=== PATIENT | female | born 1930 | race Caucasian/White ===

== ENCOUNTER 2016-11-18 09:57 | Emergency (ER) | payer MEDICARE, OTHER ==
[2016-11-18 11:19] LABS: #Lymphocytes 0.7 thou/uL (1.20-3.40); #Monocytes 0.6 thou/uL (0.11-0.59); #Neutrophils 7.5 thou/uL (1.40-6.50); %Basophils 0.1 % (0.0-1.0); %Eosinophils 0.4 % (0.0-10.0); %Lymphocytes 8.3 % (21.0-51.0); %Monocytes 6.7 % (0.0-10.0); Hematocrit 38.5 % (36.0-47.0); Mean Platelet Volume 7.4 fL (7.4-10.4); Red Blood Cell (RBC) Count 3.77 mill/uL (4.20-5.40); White Blood Cell (WBC) Count 8.9 thou/uL (4.8-10.8)
[2016-11-18 11:45] LABS: Troponin I 0.028 ng/mL (< 0.028)
[2016-11-18 11:58] LABS: ALT (SGPT) 29 U/L (8-55); AST (SGOT) 30 U/L (5-34); Alkaline Phosphatase 90 U/L (40-150); Anion Gap 16 mmol/L (10-20); BUN (Urea Nitrogen) 21 mg/dL (9.8-20.1); Bilirubin, Total 0.8 mg/dL (0.2-1.2); CK (CPK) 117 U/L (29-168); Calc. Creatinine Clearance 0 mL/min (70-130); Carbon Dioxide 24 mmol/L (23-31); Chloride 108 mmol/L (98-107); Estimated GFR-MDRD 50; Globulin 2.2 g/dL (2.4-3.5); Protein, Total 6.2 g/dL (6.0-8.3)
[2016-11-18 12:04] LABS: Bilirubin Negative (Negative); Blood, Urine Negative (Negative); Glucose, Urine (Dipstick) Negative (Negative); Ketone, Urine Negative (Negative); Nitrite Negative (Negative); Protein, Urine (Dipstick) 100 mg/dL (Neg-Trace); Urobilinogen 0.2 mg/dL (0.2-1.0)
[2016-11-18 12:09] LABS: Bacteria/HPF None Seen HPF (None Seen); Hyaline Casts/LPF 4-6 HYALINE CAST LPF (0-3 Hyaline); Squamous Epithelial 0-3 HPF (0-3); WBC/HPF 0-3 HPF (0-3)
--- NOTE | 2016-11-18 13:05 | RAD ---
SINGLE VIEW OF CHEST: Date: 11/18/16 COMPARISON: 10/20/15. HISTORY: Syncope and fall. FINDINGS: Single view of the chest shows a normal sized cardiomediastinal silhouette. There is no evidence of consolidation, mass, or pleural effusion. The bones are unremarkable. Surgical clips are seen over t he left chest wall. IMPRESSION: No evidence of acute cardiopulmonary disease. POS: [facility]
--- NOTE | 2016-11-18 13:57 | CT ---
HEAD CT WITHOUT CONTRAST: Date: 11/18/16 COMPARISON: 03/25/16. HISTORY: Fall, trauma, injury. TECHNIQUE: Serial axial CT imaging obtained at 5 mm intervals from vertex through skull base without contrast. FINDINGS: Imaged paranasal sinuses/mastoid air cells well aerated. No displaced calvarial fracture. There is cerebral volume loss with prominence of the CSF containing spaces, a stable finding. There is extensive periventricular deep and subcortical white matter hypodensity, evidence of significant stable small vessel disease. IMPRESSION: Small vessel disease and cerebral volume loss with no intracranial hemorrhage or displaced calvarial fracture. POS: [facility]
== END 2016-11-18 14:00 | disposition home or self-care (01) ==
LOC: ERS 09:57
DX: Z04.3 Encounter for examination and observation following other accident (principal); F03.90 Unspecified dementia, unspecified severity, without behavioral disturbance, psychotic disturbance, mood disturbance, and anxiety; I10 Essential (primary) hypertension; J45.909 Unspecified asthma, uncomplicated; E78.5 Hyperlipidemia, unspecified; F32.9 Major depressive disorder, single episode, unspecified; Z87.891 Personal history of nicotine dependence; Z79.899 Other long term (current) drug therapy
CPT/HCPCS: 36415; 70450; 71010; 80053; 81003; 81015; 82550; 82553; 84484; 85025; 87086; 93005

== ENCOUNTER 2016-11-18 15:49 | Observation (INO) | payer MEDICARE, OTHER ==
[2016-11-18] MEDS ORDERED: Ondansetron HCl/PF 4 MG/2 ML Vial IVP PRN ×2 (18:16→20:04)
[2016-11-18] MEDS ORDERED: Calcium Carbonate 500 MG ChewTAB PO PRN (18:16)
[2016-11-18 19:39] LABS: Troponin I 0.061 ng/mL (< 0.028)
[2016-11-18] MEDS ORDERED: Acetaminophen 325 MG TAB PO PRN (20:04)
[2016-11-18] MEDS ORDERED: Ondansetron ODT 4 MG TAB SL PRN (20:04)
[2016-11-18] MEDS: Docusate 100 MG CAP PO SCH (22:10)
[2016-11-18] MEDS: Donepezil HCl 10 MG TAB PO SCH (22:10)
[2016-11-18] MEDS: Metoprolol Tartrate 25 MG TAB PO SCH (22:11)
[2016-11-18] MEDS: busPIRone HCl 5 MG TAB PO SCH (22:29)
[2016-11-18 23:46] VITALS: BMI 22.3
[2016-11-19 01:16] LABS: Troponin I 0.062 ng/mL (< 0.028)
[2016-11-19] MEDS: Acetaminophen 325 MG TAB PO PRN (01:17)
[2016-11-19 05:37] LABS: #Eosinphils 0.1 thou/uL (0.0-0.7); #Lymphocytes 1.9 thou/uL (1.20-3.40); #Monocytes 0.7 thou/uL (0.11-0.59); #Neutrophils 5.1 thou/uL (1.40-6.50); %Eosinophils 1.7 % (0.0-10.0); %Lymphocytes 23.8 % (21.0-51.0); %Monocytes 9.2 % (0.0-10.0); Hematocrit 35.2 % (36.0-47.0); Mean Platelet Volume 7.2 fL (7.4-10.4); Red Blood Cell (RBC) Count 3.44 mill/uL (4.20-5.40); White Blood Cell (WBC) Count 7.8 thou/uL (4.8-10.8)
[2016-11-19 05:51] LABS: Anion Gap 8 mmol/L (10-20); BUN (Urea Nitrogen) 16 mg/dL (9.8-20.1); Calc. Creatinine Clearance 36 mL/min (70-130); Calcium 9.5 mg/dL (7.8-10.44); Carbon Dioxide 24 mmol/L (23-31); Chloride 108 mmol/L (98-107); Estimated GFR-MDRD 59
--- NOTE | 2016-11-19 06:39 | HP ---
PRIMARY CARE PHYSICIAN: Angelic Morris M.D. CODE STATUS: DNR. REASON FOR ADMISSION: Weakness. HISTORY OF PRESENT ILLNESS: This is an 86-year-old pleasant lady who was apparently in usual state of health, was brought by the EMS today in the morning for apparently weakness. The patient is lorena ntepifanio and most of the history is obtained from the daughter. The patient was evaluated in the [facility], because the daughter had found her sitting up in the chair and not knowing what to do, she probab ly thought that it was one of her episodes for the dementia and told her to get up and sit up in the bed, but when she came back and checked, she was sitting still on the floor, not knowing what to do . She helped her up. The daughter herself has multiple medical problems and cannot take care of he rself. She tried her best to help her up, but she could not and hence she called the paramedics who brought her out here in the emergency room. CT scan of the head was done at that time was negative . The patient's UA was negative. Chest x-ray was negative as well and the blood work did not revea l any signs of infection. The patient was sent back home. The patient's daughter had further told me that once the patient was sent back home, the patient was able to walk back into the house, but a fter that, she became extremely weak and did not follow her commands, did not follow what the daught er tried to communicate with her as she could not pull her upper pants or her under pants, etc. The patient's daughter was still concerned and sent her back to the emergency room for further episodes of weakness. The daughter knows that in dementia she does do this on a frequent basis, but she usu ally resolves to her daughter yelling at her or being more forceful, but this time, all her little t echniques did not work and hence she was sent back to the hospital. She is going to be admitted for this weakness and possibly worsening of dementia. The patient answers simple questions appropriate ly, but is not reliable in her answers and right now, she denies any fever, chills, shortness of shandra ath. PAST MEDICAL HISTORY: Significant for dementia, history of hypertension, arthritis. PAST SURGICAL HISTORY: Left hip surgery. ALLERGIES: No known drug allergies. SOCIAL HISTORY: Quit smoking long time back, does not drink or do recreational drugs. FAMILY HISTORY: Negative. MEDICATIONS: Include Aricept, Amantadine, amlodipine, aspirin, Haldol, buspirone and another antide pressant. The patient is pretty much active for her day to day activities as per the daughter. REVIEW OF SYSTEMS: Significant for dementia is present as of now, but is supposed to has a history of getting aggressive and agitated. Right now, no fever, no chills, no headache, no appetite, no he aring loss, no latencies. No cough, no chest pain, diarrhea, dysuria, or polyuria. No neck pain. Patient keeps on asking why she is out here in the hospital. PHYSICAL EXAMINATION: VITAL SIGNS: Blood pressure is 145/92, respirations 18, afebrile, satting 95% on 2 liters. GENERAL: Patient is lying in bed in no apparent distress. HEENT: Atraumatic and normocephalic. Pupils equally round, react to light. Extraocular movements intact. Mucous membranes moist. NECK: Supple. No JVD. CHEST: Breath sounds heard. No rales or rhonchi. HEART: S1, S2, no murmurs or gallops. ABDOMEN: Soft, nontender. EXTREMITIES: No cyanosis, clubbing or edema. Distal pulses present. NEUROLOGIC: Alert, awake, oriented. No focal deficits. LABORATORY DATA AND IMAGING: Potassium is 3.7, creatinine is 1.05. CT head is negative. Chest x-r ay is negative. UA is clean. ASSESSMENT AND PLAN: 1. Weakness with altered mental state, possibly secondary to worsening dementia. We will get Neuro logy consult on board. We will get PT, OT evaluation, get case management help for placement. We w ill also check the patient for orthostatics. MRI if okay with Neurology. 2. Dementia. We will continue her home medication, Aricept and Amantadine. 3. Episodes of aggression and anxiety, because of worsening dementia. We will continue the Haldol and the buspirone. 4. Hypertension. We will put the patient on metoprolol 25 mg p.o. b.i.d. and monitor the blood pre ssure. 5. Sequential compression devices for deep venous thrombosis prophylaxis. The patient is DNR. Daughter has power of patent prosecution attorney, daughter's name is Maxine, her number is . We will put the patient on telemetry for now. We will monitor the patient and do the nee d for once the clinical course evolves.
[2016-11-19] MEDS ORDERED: Potassium Chloride 20 MEQ TAB PO SCH (08:30)
[2016-11-19] MEDS ORDERED: FLU VACC TS2017-18 (>65YR) 0.5 ML SYRINGE IM ONE (09:00)
[2016-11-19] MEDS: busPIRone HCl 5 MG TAB PO SCH ×2 (09:46→21:07)
[2016-11-19] MEDS: Aspirin 81 mg Enteric Coated Tablet PO SCH (09:46)
[2016-11-19] MEDS: Docusate 100 MG CAP PO SCH ×2 (09:46→21:08)
[2016-11-19] MEDS: Metoprolol Tartrate 25 MG TAB PO SCH (09:52)
[2016-11-19 10:26] LABS: Troponin I 0.035 ng/mL (< 0.028)
--- NOTE | 2016-11-19 10:56 | PDOC.PN ---
- Subjective Encounter Start Date: 11/19/16 Encounter Start Time: 10:54 Patient seen and examined. No new complaints. No overnight events - Objective Resuscitation Status: Resuscitation Status DNR:Do Not Resuscitate MAR Reviewed: Yes Vital Signs & Weight: Vital Signs (12 hours) Temp Pulse Resp BP BP BP Pulse Ox 11/19/16 08:00 97.7 F 70 14 160/76 H 140/60 139/66 100 11/18/16 23:32 97.8 F 58 L 18 131/59 L 96 Weight Weight 114 lb 6.4 oz I&O: 11/18/16 11/19/16 11/20/16 06:59 06:59 06:59 Intake Total 80 Balance 80 Result Diagrams: 11/19/16 05:16 11/19/16 05:16 Phys Exam - Physical Examination Constitutional: NAD HEENT: PERRLA Neck: no JVD Respiratory: no wheezing Cardiovascular: no significant murmur Gastrointestinal: non-tender Musculoskeletal: pulses present Neurological: moves all 4 limbs Deviation from normal: answers simple questions appropiately Skin: normal turgor Dx/Plan (1) Weakness Code(s): R53.1 - WEAKNESS Status: Acute (2) Hypokalemia Code(s): E87.6 - HYPOKALEMIA Status: Acute (3) Dementia Code(s): F03.90 - UNSPECIFIED DEMENTIA WITHOUT BEHAVIORAL DISTURBANCE Status: Acute (4) Hypertension Code(s): I10 - ESSENTIAL (PRIMARY) HYPERTENSION Status: Chronic Comment: Stable overall. Resume home BP meds and monitor trend. - Plan * f/u neuro rec's * cont pt/ot * case mx to help with placement
[2016-11-19 15:04] LABS: Troponin I 0.057 ng/mL (< 0.028)
[2016-11-19] MEDS: Donepezil HCl 10 MG TAB PO SCH (21:08)
--- NOTE | 2016-11-19 23:10 | CON ---
DATE OF CONSULTATION: 11/19/2016 REASON FOR CONSULTATION: Dementia. REFERRING PROVIDER: Yash Davis MD HISTORY OF PRESENT ILLNESS: Ms. Fonseca is a pleasant 86-year-old female, who has been c onsulted for evaluation of dementia. History is very limited as the patient is unable to provide an d there are no family member present at bedside, thus most of the [facility] as well as the nurse, who is taking care of the patient. Apparently, the patient has a longstanding history of dementia. The patient is being cared for by her daughter at home, wh o has noted increasing difficulty with taking care of her, and thus she was brought to the [facility] for possible placement. It is noted from the H and P note that the patient was found by the daughter to be sitting on the floor, not knowing what to do. She could not help her up to, and thus she decided to call the EMS. It is also noted that patient was initially brought to the [facility] Emergency Room, and after the CT scan and chest x-ray, and urinalysis were negative. She was s ent back home. After coming back from the emergency room, daughter noted that she was having extrem e difficulty with following her commands and did not communicate with daughter. She also could not pull her pants up or her underpants, etc., this concerned her and so she decided to bring the patien t back to the emergency room. PAST MEDICAL HISTORY, PAST SURGICAL HISTORY, SOCIAL HISTORY, FAMILY HISTORY, CURRENT MEDICATIONS, AN D ALLERGIES: Could not be obtained from patient and thus she was reviewed from patient's dictated H and P noted by Dr. Yash Daivs. REVIEW OF SYSTEMS: Unable to perform. PHYSICAL EXAMINATION: VITAL SIGNS: Blood pressure of 183/81, pulse of 65, temperature of 97.5, respirations of 16, O2 sat s of 96% on room air. GENERAL: Well-developed, well-nourished female resting in bed in no apparent distress. RESPIRATORY: Clear to auscultation bilaterally. CARDIOVASCULAR: Regular rate and rhythm. NEUROLOGIC: Mental status: The patient is awake and alert, but disoriented to person, place, and t melvin. She in fact made a comment that it is a morning when it is a nighttime, and thus she asked wha t happened to the daytime. Cranial nerves: Pupils are 3 mm and reactive. Visual samaniego are full t o threat. External muscles are intact. No nystagmus is noted. Face is symmetric. Motor exam show ed normal tone and bulk with a 5/5 strength in both upper and lower extremities. Babinski: Plantar responses flexion bilaterally. Coordination intact to [id number] tapping bilaterally. Sen boris: Sensation is intact and symmetric. LABORATORY DATA: Reviewed, which included CBC, BMP, urinalysis which are nonrevealing. CT head without contrast was done on 11/18/2016 which was reviewed, which showed no acute intracrani al abnormality. IMPRESSION: Advanced dementia. ASSESSMENT AND PLAN: Ms. Fonseca is a pleasant 86-year-old female who has a longstanding history of dementia, who presented with increasing difficulty with confusion and following commands at this time, there is no real cure for the underlying condition. Unfortunately, given her advance d dementia, the treatment is supportive care. Patient would benefit from a residential placement. There is no further neurological workup needed at this time, I do not think MRI would be useful at this point, in the sense, there is no focal weakness or sudden change in mentation is noted. This h as been chronic and based on the description of the nurse's discussion with family members. I will sign off. Please call if there are any questions or concerns.
[2016-11-20 08:50] LABS: Anion Gap 9 mmol/L (10-20); BUN (Urea Nitrogen) 24 mg/dL (9.8-20.1); Calc. Creatinine Clearance 33 mL/min (70-130); Calcium 9.3 mg/dL (7.8-10.44); Carbon Dioxide 23 mmol/L (23-31); Chloride 109 mmol/L (98-107); Estimated GFR-MDRD 48
[2016-11-20] MEDS: busPIRone HCl 5 MG TAB PO SCH ×2 (10:06→19:52)
[2016-11-20] MEDS: Aspirin 81 mg Enteric Coated Tablet PO SCH (10:06)
[2016-11-20] MEDS: Acetaminophen 325 MG TAB PO PRN ×2 (10:06→19:52)
[2016-11-20] MEDS: Docusate 100 MG CAP PO SCH ×2 (10:07→19:53)
[2016-11-20] MEDS ORDERED: Metoprolol Tartrate 25 MG TAB PO SCH (16:15)
--- NOTE | 2016-11-20 16:25 | PDOC.PN ---
- Subjective Encounter Start Date: 11/20/16 Encounter Start Time: 16:22 Patient seen and examined. No new complaints. No overnight events - Objective Resuscitation Status: Resuscitation Status DNR:Do Not Resuscitate MAR Reviewed: Yes Vital Signs & Weight: Vital Signs (12 hours) Temp Pulse Pulse Pulse Resp BP BP 11/20/16 11:43 98.3 F 78 18 11/20/16 10:06 67 11/20/16 10:00 66 166/78 H 11/20/16 09:16 64 63 182/84 H 172/76 H 11/20/16 07:33 98.2 F 67 16 BP Pulse Ox 11/20/16 11:43 156/84 H 94 L 11/20/16 10:06 11/20/16 10:00 11/20/16 09:16 11/20/16 07:33 147/68 H 95 Weight Weight 121 lb 11.2 oz I&O: 11/19/16 11/20/16 11/21/16 06:59 06:59 06:59 Intake Total 80 2040 Balance 80 2040 Result Diagrams: 11/19/16 05:16 11/20/16 08:11 Phys Exam - Physical Examination Constitutional: NAD HEENT: PERRLA Neck: no JVD Respiratory: no wheezing Cardiovascular: no significant murmur Gastrointestinal: non-tender Musculoskeletal: pulses present Neurological: normal sensation Dx/Plan (1) Weakness Code(s): R53.1 - WEAKNESS Status: Acute (2) Hypokalemia Code(s): E87.6 - HYPOKALEMIA Status: Acute (3) Dementia Code(s): F03.90 - UNSPECIFIED DEMENTIA WITHOUT BEHAVIORAL DISTURBANCE Status: Acute (4) Hypertension Code(s): I10 - ESSENTIAL (PRIMARY) HYPERTENSION Status: Chronic Comment: Stable overall. Resume home BP meds and monitor trend. - Plan * neuro input appreciated * case mx to help with placement * cont current mx
[2016-11-20] MEDS: Donepezil HCl 10 MG TAB PO SCH (19:52)
[2016-11-20] MEDS: Metoprolol Tartrate 25 MG TAB PO SCH (19:53)
[2016-11-21] MEDS: Acetaminophen 325 MG TAB PO PRN (01:19)
[2016-11-21] MEDS: Aspirin 81 mg Enteric Coated Tablet PO SCH (08:53)
[2016-11-21] MEDS: Docusate 100 MG CAP PO SCH (08:53)
[2016-11-21] MEDS: busPIRone HCl 5 MG TAB PO SCH (08:54)
[2016-11-21] MEDS: Metoprolol Tartrate 25 MG TAB PO SCH (09:00)
[2016-11-21 11:58] VITALS: TEMP 97.8
--- NOTE | 2016-11-21 12:58 | PDOC.PN ---
- Subjective Encounter Start Date: 11/21/16 Encounter Start Time: 12:57 Patient seen and examined. No new complaints. No overnight events - Objective Resuscitation Status: Resuscitation Status DNR:Do Not Resuscitate MAR Reviewed: Yes Vital Signs & Weight: Vital Signs (12 hours) Temp Pulse Resp BP BP BP Pulse Ox 11/21/16 11:54 97.8 F 62 14 117/57 L 96 11/21/16 08:55 54 L 111/54 L 11/21/16 08:01 97.4 F L 54 L 14 11/21/16 07:38 97.4 F L 54 L 14 111/54 L 97 11/21/16 04:04 97.8 F 62 18 145/77 H 97 11/21/16 01:15 67 140/77 Weight Weight 117 lb 11.2 oz I&O: 11/20/16 11/21/16 11/22/16 06:59 06:59 06:59 Intake Total 0 605 Output Total 1 Balance 0 604 Result Diagrams: 11/19/16 05:16 11/20/16 08:11 Phys Exam - Physical Examination Constitutional: NAD HEENT: PERRLA Neck: no JVD Respiratory: no wheezing Cardiovascular: no significant murmur Gastrointestinal: non-tender Musculoskeletal: pulses present Neurological: normal sensation, moves all 4 limbs Psychiatric: normal affect Skin: normal turgor Dx/Plan (1) Weakness Code(s): R53.1 - WEAKNESS Status: Acute (2) Hypokalemia Code(s): E87.6 - HYPOKALEMIA Status: Acute (3) Dementia Code(s): F03.90 - UNSPECIFIED DEMENTIA WITHOUT BEHAVIORAL DISTURBANCE Status: Acute (4) Hypertension Code(s): I10 - ESSENTIAL (PRIMARY) HYPERTENSION Status: Chronic Comment: Stable overall. Resume home BP meds and monitor trend. - Plan * cont current mx * case mx to help with placement
[2016-11-21 13:42] VITALS: BP 120/57
--- NOTE | 2016-11-22 00:09 | DIS ---
DATE OF ADMISSION: 11/18/2016 DATE OF DISCHARGE: 11/21/2016 DIAGNOSES ON DISCHARGE: 1. Weakness, improved. 2. Dementia causing episodes of altered mental state, improved. 3. Episodes of aggression and anxiety, stable. 4. Hypertension, stable. 5. Arthritis, stable. DISCHARGE MEDICATIONS: Include all home medications plus hydralazine 25 mg p.o. q.6 hours p.r.n. fo r systolic greater than 160. CONSULTANTS ON THE CASE: Neurology. BRIEF HOSPITAL COURSE: An 86-year-old pleasant lady came into the hospital because of episode of al tered mental state and weakness. Please refer to my admitting physician's H\T\P for further details . The patient's workup was negative. CT scan of the head was negative. Neurology evaluated the pa ronnie and determined that it was secondary to worsening of the dementia and no further workup was ne eded, and the patient needed to be placed safely. Case management helped us with that and right now the patient is placed in a long-term, which is right now medically stable to be discharged with outpatient follow up with PCP. Total time for this discharge took 35 minutes. She is medically stable to be transferred.
--- OUTSIDE RECORDS SUMMARY | 2016-11-26 20:48 | XMS | Clinical Summary ---
:1930 Author Organization [facility] Address [address] [place] [address] Phone Care Team Providers Name Role Phone , Primary Care Provider Unavailable Allergies Not on File Current Medications Not on file Active Problems Not on file Social History Tobacco Use Types Packs/Day Years Used Date Never Assessed Sex Assigned at Date Recorded Not on file Last Filed Vital Signs Not on file Plan of Treatment Not on file Results Not on filefrom Last 3 Months
== END 2016-11-21 18:14 ==
LOC: ERS 15:49 → 2SE 18:30
PROVIDERS: ADMIT Internal Medicine; ATTEND Internal Medicine
DX: R53.1 Weakness (principal); F03.90 Unspecified dementia, unspecified severity, without behavioral disturbance, psychotic disturbance, mood disturbance, and anxiety; F41.9 Anxiety disorder, unspecified; I10 Essential (primary) hypertension; M19.90 Unspecified osteoarthritis, unspecified site; E87.6 Hypokalemia; Z66 Do not resuscitate; Z79.82 Long term (current) use of aspirin; Z79.899 Other long term (current) drug therapy; Z98.890 Other specified postprocedural states; Z87.891 Personal history of nicotine dependence
CPT/HCPCS: 51701; 70450; 71010; 80048 ×2; 80053; 82550; 82553; 83735; 84484 ×4; 85025 ×2; 87086; 93005; 93306; 96360; 96372; 96374; 97110; 97116 ×2; 97139 ×5; 97530 ×3; 99285; G0378 ×2; G8978; G8979; G8987; G8988; 36415; 81003; 81015; 90471; 90682; A4353; G0008; J0360; Q2036

== ENCOUNTER 2017-01-18 07:51 | Emergency (ER) | payer MEDICARE ==
[2017-01-18 08:36] LABS: #Eosinphils 0.1 thou/uL (0.0-0.7); #Lymphocytes 2.3 thou/uL (1.20-3.40); #Monocytes 0.5 thou/uL (0.11-0.59); #Neutrophils 5.5 thou/uL (1.40-6.50); %Basophils 0.2 % (0.0-1.0); %Eosinophils 0.6 % (0.0-10.0); %Lymphocytes 27.4 % (21.0-51.0); %Monocytes 6.4 % (0.0-10.0); Hematocrit 37.3 % (36.0-47.0); Mean Platelet Volume 6.7 fL (7.4-10.4); Red Blood Cell (RBC) Count 3.77 mill/uL (4.20-5.40); White Blood Cell (WBC) Count 8.4 thou/uL (4.8-10.8)
[2017-01-18 08:48] LABS: ALT (SGPT) 19 U/L (8-55); AST (SGOT) 18 U/L (5-34); Alkaline Phosphatase 86 U/L (40-150); Anion Gap 13 mmol/L (10-20); BUN (Urea Nitrogen) 28 mg/dL (9.8-20.1); Bilirubin, Total 0.6 mg/dL (0.2-1.2); Calc. Creatinine Clearance 0 mL/min (70-130); Calcium 10.3 mg/dL (7.8-10.44); Carbon Dioxide 21 mmol/L (23-31); Chloride 108 mmol/L (98-107); Estimated GFR-MDRD 50; Globulin 2.6 g/dL (2.4-3.5); Protein, Total 6.4 g/dL (6.0-8.3)
--- NOTE | 2017-01-18 08:56 | RAD ---
SINGLE VIEW OF THE CHEST: Comparison: 11-18-16 History: Fall today with left hip pain. FINDINGS: Single view of the chest shows a normal sized cardiomediastinal silhouette. The patient is status pos t sternotomy. There is no evidence of consolidation, mass, or pleural effusions. Increased interstiti al markings are present. IMPRESSION: No evidence of acute cardiopulmonary disease. POS: [facility]
--- NOTE | 2017-01-18 08:57 | RAD ---
TWO VIEWS LEFT HIP: Comparison: None. History: Fall today with left hip pain. FINDINGS: Two views of the left hip shows the patient to be status post fixation of the proximal aspect of the left femur. No perihardware lucency or fracture is seen. There is no evidence of acute fracture or di slocation. IMPRESSION: No evidence of acute osseous abnormality. POS: [facility]
--- NOTE | 2017-01-18 09:00 | RAD ---
SINGLE VIEW PELVIS: Comparison: 09-10-15 History: Fall with left hip pain. FINDINGS: Single view of the pelvis shows no evidence of acute fracture or dislocation. The patient has a right hip prosthesis. There is hardware in the proximal left femur stabilizing previously seen intertrocha nteric left femur fracture. Degenerative changes are seen in the lumbar spine. IMPRESSION: No evidence of acute osseous abnormality. POS: [facility]
--- NOTE | 2017-01-18 09:19 | CT ---
CT LUMBAR SPINE: Multiple axial tomograms are obtained through the lumbar spine with multiplanar reconstruction. The patient was scanned on the right side due to inability to lay supine. HISTORY: Fall with back and hip pain. FINDINGS: The lumbar vertebrae maintain height and alignment in the sagittal projection. There is no evidence of acute compression deformity. There are moderate degenerative changes. There is osteopenia. At L1-2, broad-based disk bulge combined with hypertrophic changes results in mild to moderate centra l canal stenosis. At L2-3, disk bulge combined with posterior hypertrophic changes results in moderate central canal st enosis. At L3-4, diffuse disk bulge combined with facet hypertrophy results in moderate central canal stenosi s. At L4-5, there is a broad-based disk protrusion compressing the thecal sac. Prominent facet hypertro phy. Severe central canal stenosis at this level. Bilateral foraminal encroachment at this level du e to the diffuse disk bulge/protrusion. At L5-S1, focal disk protrusion with disk calcification impinges on the thecal sac. Mild to moderate central canal stenosis. Mild bilateral foraminal stenosis. IMPRESSION: 1. There is osteopenia and degenerative changes of the lumbar spine with degenerative disk changes a t all levels. There is severe central canal stenosis at L4-5 as described above and other degrees of central canal stenosis as noted above. 2. Incidentally noted on review of soft tissues shows left renal atrophy with cystic lesions project ing from the left kidney measuring up to 3.6 cm. POS: [facility]
[2017-01-18 09:44] LABS: Bilirubin Negative (Negative); Blood, Urine Negative (Negative); Glucose, Urine (Dipstick) Negative (Negative); Ketone, Urine Negative (Negative); Nitrite Positive (Negative); Protein, Urine (Dipstick) 30 mg/dL (Neg-Trace); Urobilinogen 0.2 mg/dL (0.2-1.0)
[2017-01-18 09:47] LABS: Bacteria/HPF 4+ HPF (None Seen); Hyaline Casts/LPF 0-3 HYALINE CAST LPF (0-3 Hyaline); RBC/HPF 0-3 HPF (0-3); Squamous Epithelial None Seen HPF (0-3); WBC/HPF 21-50 HPF (0-3)
== END 2017-01-18 10:38 | disposition home or self-care (01) ==
LOC: ERS 07:51
DX: N39.0 Urinary tract infection, site not specified (principal); M25.552 Pain in left hip; F03.90 Unspecified dementia, unspecified severity, without behavioral disturbance, psychotic disturbance, mood disturbance, and anxiety; I10 Essential (primary) hypertension; J45.909 Unspecified asthma, uncomplicated; E78.5 Hyperlipidemia, unspecified; Z85.3 Personal history of malignant neoplasm of breast; Z79.899 Other long term (current) drug therapy; Z87.891 Personal history of nicotine dependence; W13.4XXA Fall from, out of or through window, initial encounter
CPT/HCPCS: 36415; 51701; 71010; 72131; 72170; 80053; 81003; 81015; 85025; 87077; 87086; 87186; 93005; A4353

== ENCOUNTER 2017-01-31 09:53 | Emergency (ER) | payer MEDICARE ==
[2017-01-31 10:39] LABS: #Lymphocytes 1.3 thou/uL (1.20-3.40); #Monocytes 1.2 thou/uL (0.11-0.59); #Neutrophils 9.5 thou/uL (1.40-6.50); %Basophils 0.2 % (0.0-1.0); %Eosinophils 0.1 % (0.0-10.0); %Lymphocytes 10.7 % (21.0-51.0); %Monocytes 10.2 % (0.0-10.0); Mean Platelet Volume 6.8 fL (7.4-10.4); Red Blood Cell (RBC) Count 3.38 mill/uL (4.20-5.40)
[2017-01-31 10:56] LABS: PTT 29.7 SEC (22.9-36.1)
[2017-01-31 11:02] LABS: Anion Gap 14 mmol/L (10-20); BUN (Urea Nitrogen) 22 mg/dL (9.8-20.1); CK (CPK) 45 U/L (29-168); Calc. Creatinine Clearance 0 mL/min (70-130); Calcium 10.2 mg/dL (7.8-10.44); Carbon Dioxide 21 mmol/L (23-31); Chloride 107 mmol/L (98-107); Estimated GFR-MDRD 56
[2017-01-31 11:07] LABS: Troponin I 0.031 ng/mL (< 0.028)
--- NOTE | 2017-01-31 13:03 | CT ---
CT BRAIN WITHOUT CONTRAST: HISTORY: Fall. The patient has Alzheimer disease. COMPARISON: 11/18/2016 FINDINGS: Changes of cortical atrophy and chronic small vessel ischemic disease are again seen. The ventricula r size is stable, and the basilar cisterns are patent. No evidence of acute infarct, hemorrhage, mid line shift, or abnormal extraaxial fluid collections is seen. The bony calvarium is intact. There a re air-fluid levels in the left maxillary and in the right sphenoid sinus. IMPRESSION: No CT evidence of acute intracranial process. POS: [facility]
--- NOTE | 2017-01-31 13:15 | CT ---
CT CERVICAL SPINE WITH CORONAL AND SAGITTAL REFORMATIONS: History: Fall. Patient has a history of Alzheimer's disease. FINDINGS/IMPRESSION: There are degenerative changes seen throughout the cervical spine. No acute fracture or subluxation i s identified. There is scarring in the right lung apex. POS: [facility]
--- NOTE | 2017-01-31 13:35 | CT ---
CT ABDOMEN AND PELVIS WITH IV CONTRAST: 01/31/2017 PROVIDED CLINICAL HISTORY: Abdominal pain status post fall. FINDINGS: The visualized lung bases are free of significant opacity. There is a moderate hiatal hernia. Simpl e appearing cysts involve the superior pole of the left kidney, which appears severely atrophic with respect to the right. Foci of diminished attenuation involve the right kidney, too small to definiti vely characterize and suboptimally visualized due to patient respiratory motion but statistically ref lecting cysts. The liver, spleen, pancreas, and adrenal glands appear unremarkable. There is no bowel dilatation, inflammatory fat stranding, free fluid, or free air apparent. The pelv is, including the urinary bladder, is suboptimally evaluated, due to extensive beam hardening artifac t from bilateral hip postoperative change. The osseous structures demonstrate no concerning osteoblastic or osteolytic lesions. There is no lauren dence for fracture. Degenerative changes are seen involving the lumbar spine. Extensive atheroscler otic vascular calcification is seen. IMPRESSION: No evidence for traumatic abnormality involving the abdomen and pelvis. POS: [facility]
== END 2017-01-31 13:35 ==
LOC: ERS 09:53
DX: S70.01XA Contusion of right hip, initial encounter (principal); S30.1XXA Contusion of abdominal wall, initial encounter; I10 Essential (primary) hypertension; E78.5 Hyperlipidemia, unspecified; J45.909 Unspecified asthma, uncomplicated; Z87.891 Personal history of nicotine dependence; F32.9 Major depressive disorder, single episode, unspecified; Z79.899 Other long term (current) drug therapy; W19.XXXA Unspecified fall, initial encounter
CPT/HCPCS: 36415; 70450; 72125; 74177; 80048; 82553; 84484; 85025; 85610; 85730; 93005

== ENCOUNTER 2017-02-17 10:34 | Emergency (ER) | payer MEDICARE ==
--- NOTE | 2017-02-17 12:16 | RAD ---
FRONTAL RADIOGRAPH PELVIS: Date: 02/17/17 COMPARISON: None. HISTORY: Fall. FINDINGS: Two views are provided. There is evidence of prior open reduction and internal fixation of the proxim al left femur. There is a total hip arthroplasty on the right. These findings are unchanged when comp ared to 01/18/17. The pelvic ring appears intact. The inferior pubic rami and superior pubic rami papi ear unremarkable bilaterally. No widening of the sacroiliac joints of the pubic symphysis is seen. Th e bones are demineralized, limiting assessment for nondisplaced fracture. IMPRESSION: Stable frontal radiograph of pelvis demonstrating no displaced fracture. POS: [facility]
[2017-02-17 12:22] LABS: Bilirubin Negative (Negative); Blood, Urine Small (Negative); Clarity TURBID (Clear); Glucose, Urine (Dipstick) Negative (Negative); Leukocyte Large (Negative); Nitrite Positive (Negative); Protein, Urine (Dipstick) 30 mg/dL (Neg-Trace); Specific Gravity, Urine 1.011 (1.002-1.036); Urobilinogen 0.2 mg/dL (0.2-1.0); pH, Urine 7.5 (5.0-9.0)
[2017-02-17 12:24] LABS: Bacteria/HPF 4+ HPF (None Seen); Hyaline Casts/LPF 0-3 HYALINE CAST LPF (0-3 Hyaline); RBC/HPF 0-3 HPF (0-3); Squamous Epithelial 0-3 HPF (0-3)
[2017-02-17 12:28] LABS: Yeast-AUWi Flag 62.4 (0-25.0)
--- NOTE | 2017-02-17 12:29 | RAD ---
CHEST 1 VIEW: Date: 02/17/17 HISTORY: 87-year-old female with chest injury following a fall. History of dementia. COMPARISON: 01/18/17. FINDINGS: There are some alveolar and interstitial small opacities noted in the right lower mid lung zone and i n the left lower lung zone, which are new when compared to the prior x-ray of 01/18/17 raising concer n for bilateral pneumonia. There is evidence for small hiatal hernia. Atherosclerosis of aorta. There are some small, somewhat puncture, artifactual opacities which overlie the upper chest and neck and supraclavicular regions. IMPRESSION: Developing bilateral alveolar and interstitial pulmonary opacities in the right mid lung zone and lef t lower mid lung zone since the prior study, raising concern for bilateral pneumonia. Small hiatal he rnia. No evidence for pneumothorax or pleural effusion. POS: [facility]
[2017-02-17 12:41] LABS: Yeast-All Forms None Seen HPF (None Seen)
[2017-02-17] MEDS ORDERED: Piperacillin/Tazobactam 4.5 GM in Sodium Chloride 0.9% 100 ML IVPB ONE (12:45)
[2017-02-17] MEDS ORDERED: Acetaminophen 325 MG TAB PO PRN (12:57)
[2017-02-17] MEDS ORDERED: Ondansetron HCl/PF 4 MG/2 ML Vial IVP PRN (12:57)
[2017-02-17] MEDS ORDERED: Senokot 8.6 MG TAB PO PRN (12:57)
[2017-02-17] MEDS ORDERED: Guaifenesin DM 100-10/5 ML UDCUP PO PRN (12:57)
[2017-02-17] MEDS ORDERED: Sodium Chloride 0.9% 1,000 ML IV SCH (13:00)
[2017-02-17 13:05] LABS: #Lymphocytes 2.5 thou/uL (1.20-3.40); #Monocytes 0.6 thou/uL (0.11-0.59); #Neutrophils 7.8 thou/uL (1.40-6.50); %Basophils 0.3 % (0.0-1.0); %Eosinophils 0.3 % (0.0-10.0); %Lymphocytes 22.7 % (21.0-51.0); %Monocytes 5.7 % (0.0-10.0); Hemoglobin 11.5 g/dL (12.0-16.0); Mean Corpuscular Hemoglobin 33.1 pg (27.0-31.0); Mean Platelet Volume 6.2 fL (7.4-10.4); Platelet Count 382 thou/uL (130-400); Red Blood Cell (RBC) Count 3.47 mill/uL (4.20-5.40)
[2017-02-17 13:23] LABS: Anion Gap 17 mmol/L (10-20); BUN (Urea Nitrogen) 17 mg/dL (9.8-20.1); CK (CPK) 52 U/L (29-168); Calc. Creatinine Clearance 0 mL/min (70-130); Calcium 10.2 mg/dL (7.8-10.44); Carbon Dioxide 19 mmol/L (23-31); Chloride 106 mmol/L (98-107); Estimated GFR-MDRD 51; Glucose 90 mg/dL (83-110); Potassium 3.8 mmol/L (3.5-5.1); Sodium 138 mmol/L (136-145)
[2017-02-17 13:27] LABS: CKMB 1.6 ng/mL (0-6.6); Troponin I 0.013 ng/mL (< 0.028)
--- NOTE | 2017-02-17 13:48 | HP ---
REASON FOR ADMISSION: Pneumonia. HISTORY OF PRESENT ILLNESS: Please note the majority of this history is obtained by talking to Dr. Ortega, ER physician, prior medical records, care home records from [facility] as patient has advanced dementia and cannot contribute for history. Per ER physician, the patient was sent over from [facility] as she was found on the floor. They think she might have fallen. She has had a pelvic x-ray and chest x-ray done so far. The pelvic x- ray does not show any fractures. Chest x-ray shows patchy infiltrates in both lungs. She shortly going for CT of the brain. She moves all 4 extremities. Does not complain of any specific pain. No shortness of breath. 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 CURRENT MEDICATIONS: Per [facility] records, the patient is on Norvasc 5 mg p.o. twice daily, Tylenol 500 mg p.o. twice daily, buspirone 7.5 mg p.o. 3 times daily, Colace 100 mg daily, donepezil 10 mg p.o. at bedtime, citalopram 5 mg p.o. daily, melatonin 3 mg p.o. at bedtime, Namenda 10 mg twice daily, Oyster Shell with calcium 1 tablet twice daily, alprazolam 0.5 mg p.o. twice daily p.r.n. for anxiety. ALLERGIES: No known drug allergies. PERSONAL HISTORY: The patient is a care home resident and does not abuse alcohol or drugs. History of seborrheic keratosis. She quit smoking in 1973. Has had nearly 10-pack smoking history prior to that. FAMILY HISTORY: Positive for melanoma per prior records. REVIEW OF SYSTEMS: Cannot be obtained as the patient has advanced dementia and cannot contribute. PHYSICAL EXAMINATION: GENERAL: The patient is an 87-year-old female who is currently not in any acute distress. VITAL SIGNS: Blood pressure 160/82, pulse 86 per minute, respiratory rate 18 per minute, temperature 98 degrees Fahrenheit, saturating 99% on room air. NECK: Supple, no elevated JVD. HEENT: Extraocular muscles intact. Pupils reacting to light. Oral cavity mucous membranes are dry. No exudates or congestion. CARDIOVASCULAR: S1, S2 heard. Regular rhythm. RESPIRATORY: Air entry 1+ bilateral, scattered rhonchi plus no wheezes. ABDOMEN: Soft, bowel sounds heard. No tenderness, rigidity or guarding. EXTREMITIES: No peripheral edema or calf tenderness. VASCULAR SYSTEM: Peripheral pulses 1+ bilateral, no ischemic ulcerations or gangrene. CENTRAL NERVOUS SYSTEM: The patient moves all 4 extremities and has no focal signs. PSYCHIATRIC: The patient appears to have a bit of anxiety, otherwise no obvious hallucinations or delusions at present. She is not oriented. LABORATORY AND X-RAY FINDINGS: Pelvic x-ray done shows no displaced fracture. Chest x-ray done shows bilateral alveolar and interstitial pulmonary opacities in the right mid lung zone and the left lower mid lung zone suggestive of possible early bilateral pneumonia. The patient has had a urinalysis done which shows positive nitrite with large leukocyte esterase, greater than 50 wbc' s and 4+ bacteria. CT brain results are pending and so is her CBC and metabolic panel. CLINICAL IMPRESSION AND PLAN: The patient will be admitted to medical floor for pneumonia with urinary tract infection. Henson cultures have been obtained in the ER. We will place her on Levaquin 500 mg IV daily. We will continue her Norvasc, aspirin, buspirone, Colace, Aricept, Lexapro, fish oil, and Namenda as before. The patient carries out of hospital DNR, which was signed on 12/20/2016 , and we will continue her as do not resuscitate here. If the patient were to worsen over the next 24 hours, she will be switched over to inpatient status. We will continue to closely monitor her on medical floor. A flu test is also pending at present. Addendum: labs reviewed, d/w 's ER physician who spoke to patient's daughter. Per their conversation patient was recently treated for influenza at her care home and had some chest xray changes then. She will be shortly discharged from ER back to shelter. Please note this is a ER consultation. SAMEER
--- NOTE | 2017-02-17 13:56 | CT ---
HEAD CT: Date: 02/17/17 COMPARISON: 01/31/17. HISTORY: Dementia, fall. TECHNIQUE: Serial axial CT imaging at 5 mm intervals from vertex through skull base without contrast. FINDINGS: There is near complete opacification of the sphenoid sinus on the right and the maxillary sinus on th e left. This has progressed since the prior exam. No displaced calvarial fracture is seen. There is a therosclerotic calcification of the distal vertebral artery and the cavernous carotid arteries. There is moderate diffuse cerebral volume loss. There is extensive periventricular deep and subcortic al white matter hypodensity, evidence of small vessel disease. IMPRESSION: Small vessel disease and cerebral volume loss with no displaced calvarial fracture or intracranial he morrhage. Worsening paranasal sinus disease. POS: [facility]
[2017-02-17] MEDS ORDERED: Famotidine 20 MG TAB PO SCH (21:00)
[2017-02-17] MEDS ORDERED: Amlodipine 5 MG TAB PO SCH (21:00)
[2017-02-17] MEDS ORDERED: Donepezil HCl 10 MG TAB PO SCH (21:00)
[2017-02-17] MEDS ORDERED: busPIRone HCl 5 MG TAB PO SCH (21:00)
[2017-02-17] MEDS ORDERED: Fish Oil 1,000 MG CAP PO SCH (21:00)
[2017-02-18] MEDS ORDERED: Docusate 100 MG CAP PO SCH (09:00)
[2017-02-18] MEDS ORDERED: Escitalopram Oxalate 10 mg Tablet PO SCH (09:00)
[2017-02-18] MEDS ORDERED: Aspirin 81 mg Enteric Coated Tablet PO SCH (09:00)
[2017-02-18] MEDS ORDERED: Enoxaparin Sodium 30 MG/0.3 ML SYRINGE SC SCH (09:00)
[2017-02-18] MEDS ORDERED: Famotidine 20 MG TAB PO SCH (09:00)
== END 2017-02-17 15:24 | disposition home or self-care (01) ==
LOC: ERS 10:34
DX: J18.9 Pneumonia, unspecified organism (principal); F03.90 Unspecified dementia, unspecified severity, without behavioral disturbance, psychotic disturbance, mood disturbance, and anxiety; N39.0 Urinary tract infection, site not specified; R29.6 Repeated falls; I10 Essential (primary) hypertension; J45.909 Unspecified asthma, uncomplicated; E78.5 Hyperlipidemia, unspecified; F32.9 Major depressive disorder, single episode, unspecified; Z87.891 Personal history of nicotine dependence; Z79.899 Other long term (current) drug therapy
CPT/HCPCS: 36415; 51701; 70450; 71045; 72170; 80048; 81003; 81015; 82553; 83605; 84484; 85025; 87040; 87077; 87086; 87186; 87804; 96365; 96367; A4353; J1956; J2543; J7050

== ENCOUNTER 2017-05-23 10:21 | Emergency (ER) | payer MEDICARE ==
[2017-05-23 12:08] LABS: #Lymphocytes 2.1 thou/uL (1.20-3.40); #Monocytes 0.8 thou/uL (0.11-0.59); #Neutrophils 5.9 thou/uL (1.40-6.50); %Eosinophils 0.4 % (0.0-10.0); %Lymphocytes 23.8 % (21.0-51.0); %Monocytes 8.6 % (0.0-10.0); %Neutrophils 67.3 % (42.0-75.0); Hemoglobin 11.3 g/dL (12.0-16.0); Mean Corpuscular HGB CONC 33.1 g/dL (32.0-36.0); Mean Corpuscular Hemoglobin 32.6 pg (27.0-31.0); Mean Corpuscular Volume 98.3 fl (81.0-99.0); Mean Platelet Volume 7.4 fL (7.4-10.4); Platelet Count 190 thou/uL (130-400); RBC Distribution Width 12.6 % (11.5-14.5); Red Blood Cell (RBC) Count 3.48 mill/uL (4.20-5.40); White Blood Cell (WBC) Count 8.7 thou/uL (4.8-10.8)
[2017-05-23 12:27] LABS: ALT (SGPT) 18 U/L (8-55); AST (SGOT) 16 U/L (5-34); Albumin 3.8 g/dL (3.4-4.8); Alkaline Phosphatase 103 U/L (40-150); Anion Gap 12 mmol/L (10-20); BUN (Urea Nitrogen) 28 mg/dL (9.8-20.1); Bilirubin, Total 0.3 mg/dL (0.2-1.2); Calc. Creatinine Clearance 0 mL/min (70-130); Calcium 9.8 mg/dL (7.8-10.44); Carbon Dioxide 23 mmol/L (23-31); Chloride 108 mmol/L (98-107); Estimated GFR-MDRD 51; Glucose 107 mg/dL (83-110); Protein, Total 6.8 g/dL (6.0-8.3); Sodium 139 mmol/L (136-145)
--- NOTE | 2017-05-23 12:41 | CT ---
CT CERVICAL SPINE NONCONTRAST: HISTORY: An 87-year-old female, status post acute cervical trauma from fall. FINDINGS: There are no jumped or perched facets. There is no evidence of acute fracture. The vertebral body h eights are maintained. There is no prevertebral soft tissue swelling. There is multilevel high-grad e degenerative facet disease bilaterally. There is posterior subluxation of the left lateral mass of C1 relative to C2. The right atlantoaxial joint is not subluxed. There is no high-grade disk space narrowing at any level. There is diffuse osteopenia. IMPRESSION: 1. No evidence of acute fracture or acute traumatic subluxation. 2. Multilevel high-grade bilateral facet osteoarthrosis. 3. Osteopenia. 4. Subluxation of the left atlantoaxial joint, probably chronic. jn [] POS: [facility]
--- NOTE | 2017-05-23 12:45 | CT ---
CT BRAIN NONCONTRAST: DATE: 05/23/17. TIME: 11:43 a.m. HISTORY: An 87-year-old female status post acute trauma from fall, with epistaxis. History of dementia. COMPARISON: 02/17/17. FINDINGS: No evidence of acute calvarial fracture. No evidence of acute intraaxial or extraaxial hemorrhage, m ass effect, midline shift, or extraaxial fluid collection. Diffuse ventriculomegaly. Somewhat sever e diffuse chronic ischemic white matter changes of the cerebrum. Previously demonstrated large air f luid level in the left maxillary sinus has resolved. The left maxillary sinus is essentially clear. There is a new small fluid level in the contralateral right maxillary sinus with high density, proba chelle representing blood. There is another new finding of material in the nasopharyngeal airway, which could also represent blood clots. The previously demonstrated total opacification of the sphenoid s inus has now resolved. The bilateral tympanomastoid cavities are grossly clear. IMPRESSION: 1. Fluid in the right maxillary sinus and nasopharyngeal airway which may represent blood, given the history of epistaxis. 2. No acute intracranial findings. 3. Chronic involutional parenchymal changes, ventriculomegaly, and severe chronic ischemic white matter changes. DONAVAN Zamarripa POS: [facility]
== END 2017-05-23 14:31 | disposition home or self-care (01) ==
LOC: ERS 10:21
DX: R04.0 Epistaxis (principal); I25.10 Atherosclerotic heart disease of native coronary artery without angina pectoris; D50.0 Iron deficiency anemia secondary to blood loss (chronic); E78.5 Hyperlipidemia, unspecified; E78.2 Mixed hyperlipidemia; I10 Essential (primary) hypertension; F41.9 Anxiety disorder, unspecified; Z79.899 Other long term (current) drug therapy; W07.XXXA Fall from chair, initial encounter
CPT/HCPCS: 36415; 70450; 72125; 80053; 85025

== ENCOUNTER 2017-05-26 08:24 | Emergency (ER) | payer MEDICARE ==
--- NOTE | 2017-05-26 10:57 | CT ---
HEAD CT WITHOUT CONTRAST: Date: 05/26/17 COMPARISON: 05/23/17. HISTORY: Fall, syncope, headache. TECHNIQUE: Serial axial CT imaging at 5 mm intervals from vertex through skull base without contrast. FINDINGS: There is polypoid mucosal thickening involving the alveolar recess of the maxillary sinus on the righ t. There is no displaced calvarial fracture. There is extensive periventricular deep and subcortical white matter hypodensity, evidence of promine nt small vessel disease. There is prominent cerebral volume loss as well. No intracranial hemorrhage, midline shift, or mass effect. IMPRESSION: Prominent cerebral volume loss and small vessel disease with no intracranial hemorrhage or displaced calvarial fracture. POS: [facility]
[2017-05-26] MEDS ORDERED: Amlodipine 5 MG TAB ONE (11:00)
[2017-05-26] MEDS ORDERED: Acetaminophen 325 MG TAB ONE (11:00)
--- NOTE | 2017-05-26 11:01 | CT ---
CT CERVICAL SPINE WITHOUT CONTRAST: Date: 05/26/17 HISTORY: Fall. FINDINGS: No fracture. No malalignment. Moderate facet arthropathy of cervical spine. Posterior disc osteophyte complex C6-7. There is some scarring in the lung apices. There are peripherally calcified bodies in the right subsc apular bursa. IMPRESSION: No acute fracture or malalignment of the cervical spine. POS: [facility]
[2017-05-26] MEDS ORDERED: Fentanyl 100 MCG/2 ML VIAL ONE (11:16)
--- NOTE | 2017-05-26 11:16 | RAD ---
CHEST 1 VIEW: Date: 05/26/17 HISTORY: Fall. COMPARISON: Chest radiograph dated 02/17/17. FINDINGS: Interval improvement in parenchymal opacities from the comparison examination. No new focal air space consolidation, pneumothorax, or effusion. No displaced rib fracture. Bones are osteopenic. Left brisa thorax surgical clips. IMPRESSION: No acute intrathoracic abnormality. POS: [facility]
--- NOTE | 2017-05-26 11:24 | RAD ---
PELVIS 1 VIEW: Date: 05/26/17 HISTORY: Fall. COMPARISON: Pelvis radiograph from 02/17/17. FINDINGS: Right hip arthroplasty is in place. Left femoral nail is in place. There appears to be callus formati on along the left superior inferior pubic rami suggesting healing fractures. Acute superimposed fract ure cannot be totally excluded. Left sacral struts may be fractured. IMPRESSION: 1. Left superior pubic ramus fracture, age indeterminate. Inferior pubic ramus fracture also appears to have some callus formation. This may be subacute in nature. 2. Likely some chronic left sacral strut fractures. POS: [facility]
--- NOTE | 2017-05-26 11:27 | RAD ---
RIGHT TIBIA AND FIBULA 2 VIEWS: Date: 05/26/17 HISTORY: Fall. COMPARISON: None. FINDINGS: No fracture or malalignment. There are soft tissue phleboliths. There are vascular calcifications. IMPRESSION: No acute abnormality. POS: [facility]
--- NOTE | 2017-05-26 11:30 | RAD ---
2 VIEWS LEFT HIP: Date: 05/26/17 COMPARISON: None. HISTORY: Fall. FINDINGS: There is postoperative hardware within the femoral neck and proximal femur on the left. There is an i ncompletely imaged hip arthroplasty on the right. There is an obliquely oriented fracture involving t he superior pubic ramus on the left. This is an age-indeterminate fracture which may be acute or suba cute. There is also irregularity involving the inferior pubic ramus on the left suggesting age-indete rminate fracture. IMPRESSION: Findings suggesting age-indeterminate fracture of the superior and inferior pubic rami on the left. POS: [facility]
--- NOTE | 2017-05-26 12:03 | CT ---
CT PELVIS WITHOUT CONTRAST: Date: 05/26/17 HISTORY: Fall. Possible pelvic fracture. COMPARISON: Radiographs from same date. FINDINGS: There are healing left superior and inferior pubic ramus fractures with dense callus formation. Fract ure lines are still evident. There are also insufficiency fractures of the sacrum through Zone 1, S1, 2, 3, 4, and 5, with sclerosis. Bones are osteoporotic. Right hip arthroplasty is in place. Left femoral nail is without hardware complication. Dense calcifications of the hamstring tendons bilaterally. IMPRESSION: 1. Healing left superior and inferior pubic ramus fractures with extensive osseous remodeling. 2. Insufficiency fracture left sacrum Zone 1, S1-S5. 3. Motion artifact through the iliac wings bilaterally mimics fracture. 4. Anterolisthesis of L4 over L5 due to advanced facet arthropathy. 5. Moderate diverticular disease sigmoid colon without active current inflammation. POS: [facility]
== END 2017-05-26 13:12 | disposition home or self-care (01) ==
LOC: ERS 08:24
DX: S70.02XA Contusion of left hip, initial encounter (principal); S80.12XA Contusion of left lower leg, initial encounter; I25.10 Atherosclerotic heart disease of native coronary artery without angina pectoris; D50.0 Iron deficiency anemia secondary to blood loss (chronic); E78.1 Pure hyperglyceridemia; I10 Essential (primary) hypertension; M48.00 Spinal stenosis, site unspecified; M19.90 Unspecified osteoarthritis, unspecified site; F41.9 Anxiety disorder, unspecified; F03.90 Unspecified dementia, unspecified severity, without behavioral disturbance, psychotic disturbance, mood disturbance, and anxiety; Z79.899 Other long term (current) drug therapy; Y92.129 Unspecified place in nursing home as the place of occurrence of the external cause; W19.XXXA Unspecified fall, initial encounter
CPT/HCPCS: 70450; 71045; 72125; 72170; 72192; J3010

== ENCOUNTER 2017-06-10 16:53 | Emergency (ER) | payer MEDICARE ==
--- NOTE | 2017-06-10 17:36 | RAD ---
UPRIGHT PORTABLE CHEST ONE VIEW: HISTORY: An 87-year-old female with a history of Alzheimer with an unwitnessed fall with a possible head injur y. COMPARISON: 05/26/2017 FINDINGS: Heart size is within normal limits. There are some surgical clips in the left axilla and overlying t he left chest. Evidence for a hiatal hernia. Minimal patchy interstitial and reticulonodular parenc hymal changes bilaterally, which appear stable. IMPRESSION: 1. Stable increased markings, in particular in the right upper lobe region, when compared to 018. 2. No overt edema, confluent pneumonia, pleural effusion, or other new process. 3. No pneumothorax. POS: [facility]
--- NOTE | 2017-06-10 17:48 | RAD ---
AP PELVIS ONE VIEW: HISTORY: An 87-year-old female with a history of Alzheimer and fall. COMPARISON: 05/26/2017 FINDINGS: Healed primarily left-sided pelvic fractures. Severe bone demineralization. Left hip compression sc rew and right total hip replacement, stable. IMPRESSION: 1. Bone demineralization without overt acute fracture. 2. Healed left pelvic fractures. 3. Left hip compression screw and right hip replacement. POS: [facility]
== END 2017-06-10 18:29 ==
LOC: ERS 16:53
DX: S70.02XA Contusion of left hip, initial encounter (principal); S00.01XA Abrasion of scalp, initial encounter; I25.10 Atherosclerotic heart disease of native coronary artery without angina pectoris; D50.0 Iron deficiency anemia secondary to blood loss (chronic); E78.5 Hyperlipidemia, unspecified; E78.1 Pure hyperglyceridemia; I10 Essential (primary) hypertension; F41.9 Anxiety disorder, unspecified; F03.91 Unspecified dementia, unspecified severity, with behavioral disturbance; Z79.899 Other long term (current) drug therapy; W19.XXXA Unspecified fall, initial encounter
CPT/HCPCS: 71045; 72170; 93005

== ENCOUNTER 2017-09-16 15:15 | Emergency (ER) | payer MEDICARE ==
[2017-09-16 15:46] LABS: Bilirubin Negative (Negative); Blood, Urine Negative (Negative); Clarity CLOUDY (Clear); Glucose, Urine (Dipstick) Negative (Negative); Leukocyte Large (Negative); Nitrite Positive (Negative); Protein, Urine (Dipstick) 300 mg/dL (Neg-Trace); Specific Gravity, Urine 1.023 (1.002-1.036); Urobilinogen 0.2 mg/dL (0.2-1.0)
[2017-09-16 15:48] LABS: Bacteria/HPF 4+ HPF (None Seen); Hyaline Casts/LPF 4-6 HYALINE CAST LPF (0-3 Hyaline); Pathc Cast-AUWi Flag 1.01 (0-2.49); RBC/HPF 0-3 HPF (0-3); Squamous Epithelial None Seen HPF (0-3)
[2017-09-16 15:49] LABS: Yeast-AUWi Flag 31.2 (0-25.0)
[2017-09-16 15:59] LABS: Yeast-All Forms None Seen HPF (None Seen)
[2017-09-16 16:29] LABS: #Lymphocytes 3.4 thou/uL (1.20-3.40); #Monocytes 0.7 thou/uL (0.11-0.59); #Neutrophils 4.5 thou/uL (1.40-6.50); %Basophils 0.5 % (0.0-1.0); %Eosinophils 0.3 % (0.0-10.0); %Monocytes 7.8 % (0.0-10.0); %Neutrophils 52.4 % (42.0-75.0); Hemoglobin 12.2 g/dL (12.0-16.0); Mean Corpuscular HGB CONC 33.7 g/dL (32.0-36.0); Mean Corpuscular Hemoglobin 32.6 pg (27.0-31.0); Mean Corpuscular Volume 96.8 fL (78.0-98.0); Platelet Count 188 thou/uL (130-400); RBC Distribution Width 12.5 % (11.5-14.5); Red Blood Cell (RBC) Count 3.76 mill/uL (4.20-5.40); White Blood Cell (WBC) Count 8.6 thou/uL (4.8-10.8)
[2017-09-16 16:53] LABS: ALT (SGPT) 14 U/L (8-55); AST (SGOT) 16 U/L (5-34); Albumin 4.3 g/dL (3.4-4.8); Alkaline Phosphatase 83 U/L (40-150); Anion Gap 18 mmol/L (10-20); BUN (Urea Nitrogen) 37 mg/dL (9.8-20.1); Bilirubin, Total 0.4 mg/dL (0.2-1.2); CK (CPK) 72 U/L (29-168); Calc. Creatinine Clearance 0 mL/min (70-130); Calcium 10.1 mg/dL (7.8-10.44); Carbon Dioxide 18 mmol/L (23-31); Chloride 107 mmol/L (98-107); Estimated GFR-MDRD 37; Globulin 2.8 g/dL (2.4-3.5); Glucose 90 mg/dL (83-110); Protein, Total 7.1 g/dL (6.0-8.3); Sodium 139 mmol/L (136-145)
--- NOTE | 2017-09-16 17:20 | CT ---
CT BRAIN WITHOUT CONTRAST: History: Fall, dementia. FINDINGS: Comparison made with exam of 05-26-17. Changes of cortical atrophy and chronic small vessel ischemic disease are again seen. The ventricular size is stable and the basal cisterns patent. No evidence of acute infarct, hemorrhage, midline shif t, or abnormal extraaxial fluid collections are seen. The bony calvarium is intake. The visualized pa ranasal sinuses and mastoid air cells are well aerated. IMPRESSION: No CT evidence of acute intracranial process. POS: [facility]
--- NOTE | 2017-09-16 17:25 | CT ---
CT CEVICAL SPINE: History: Fall. Dementia. FINDINGS: Comparison is made with exam of 05-26-17. Degenerative changes are again seen. No fracture or subluxation is identified. No malalignment is not ed. Scarring in the lung apices again noted. IMPRESSION: No acute process. POS: [facility]
--- NOTE | 2017-09-16 17:32 | RAD ---
THREE VIEWS LEFT SHOULDER: Date: 09-16-17 Comparison: None. History: Fall, injury, pain. FINDINGS: There is degenerative change involving the left acromioclavicular joint with subchondral sclerosis an d osteophyte formation. There is elevation of the left humeral head suggesting possible underlying ro tator cuff tear. No widening of the acromioclavicular or coracoclavicular interspace. No acute fractu re or evidence of dislocation. IMPRESSION: Chronic findings as described above. No displaced fracture or dislocation seen. POS: [facility]
--- NOTE | 2017-09-16 17:34 | RAD ---
FRONTAL RADIOGRAPH PELVIS: Date: 09-16-17 Comparison: 06-10-17 History: Fall. FINDINGS: Patient positioning limits detailed assessment. Probable old fracture or superior and inferior pubic rami noted on the left. Right total hip arthroplasty noted. There is post-operative hardware within t he proximal left femur. No widening of the pubic symphysis or sacroiliac joints. The bones are demine ralized, limiting detailed assessment for nondisplaced fracture. Vascular calcifications are noted bi laterally. IMPRESSION: No definite acute fracture or dislocation. If symptoms persist, cross sectional imaging suggested. POS: [facility]
--- NOTE | 2017-09-16 17:36 | RAD ---
PORTABLE UPRIGHT FRONTAL CHEST RADIOGRAPH: Date: 09-16-17 Comparison: None. History: Fall FINDINGS: There is atherosclerotic calcification of the aorta arch. Post-operative clips overlie the left lung apex and left axillary region. No pneumothorax, pleural fluid, focal consolidation or alveolar edema. There is increased linear interstitial density with pulmonary hyperinflation. The bones are deminera lized. IMPRESSION: Chronic findings as detailed above. No lobar consolidation or alveolar edema. POS: [facility]
== END 2017-09-16 18:01 | disposition home or self-care (01) ==
LOC: ERS 15:15
DX: S40.212A Abrasion of left shoulder, initial encounter (principal); N39.0 Urinary tract infection, site not specified; I10 Essential (primary) hypertension; I25.10 Atherosclerotic heart disease of native coronary artery without angina pectoris; E78.5 Hyperlipidemia, unspecified; D50.0 Iron deficiency anemia secondary to blood loss (chronic); E78.2 Mixed hyperlipidemia; F41.9 Anxiety disorder, unspecified; F03.90 Unspecified dementia, unspecified severity, without behavioral disturbance, psychotic disturbance, mood disturbance, and anxiety; Z79.899 Other long term (current) drug therapy; W19.XXXA Unspecified fall, initial encounter
CPT/HCPCS: 36415; 51701; 70450; 71045; 72125; 72170; 80053; 81003; 81015; 82550; 85025; 87077; 87086; 87186; 93005; A4353

== ENCOUNTER 2017-11-28 21:53 | Emergency (ER) | payer MEDICARE ==
[2017-11-28 23:02] LABS: #Basophils 0.1 thou/uL (0.0-0.2); #Eosinphils 0.1 thou/uL (0.0-0.7); #Lymphocytes 2.4 thou/uL (1.20-3.40); #Monocytes 0.6 thou/uL (0.11-0.59); #Neutrophils 3.7 thou/uL (1.40-6.50); %Basophils 0.8 % (0.0-1.0); %Eosinophils 1.3 % (0.0-10.0); %Lymphocytes 35.2 % (21.0-51.0); %Monocytes 8.9 % (0.0-10.0); %Neutrophils 53.9 % (42.0-75.0); Hemoglobin 11.7 g/dL (12.0-16.0); Mean Corpuscular HGB CONC 32.8 g/dL (32.0-36.0); Mean Corpuscular Hemoglobin 32.3 pg (27.0-31.0); Mean Corpuscular Volume 98.4 fL (78.0-98.0); Mean Platelet Volume 7.2 fL (7.4-10.4); Platelet Count 185 thou/uL (130-400); RBC Distribution Width 12.8 % (11.5-14.5); Red Blood Cell (RBC) Count 3.63 mill/uL (4.20-5.40); White Blood Cell (WBC) Count 6.8 thou/uL (4.8-10.8)
[2017-11-28 23:22] LABS: Anion Gap 11 mmol/L (10-20); BUN (Urea Nitrogen) 35 mg/dL (9.8-20.1); Calc. Creatinine Clearance 0 mL/min (70-130); Calcium 9.8 mg/dL (7.8-10.44); Carbon Dioxide 21 mmol/L (23-31); Chloride 111 mmol/L (98-107); Estimated GFR-MDRD 42; Glucose 100 mg/dL (83-110); Sodium 139 mmol/L (136-145)
--- NOTE | 2017-11-28 23:22 | CT ---
NONCONTRAST CT HEAD: 11/28/17 HISTORY: Trauma. Unwitnessed fall. COMPARISON: 09/16/17. FINDINGS: Again noted are severe chronic small vessel ischemic changes with moderate cerebral volume loss. Vent ricular system is stable in size. There is no evidence of an acute cortical infarction, hemorrhage, m ass effect, or midline shift. No calvarial fracture is seen. There has been no interval change from p rior exam. IMPRESSION: 1. No acute intracranial abnormalities demonstrated. 2. Stable chronic small vessel ischemic changes and cerebral volume loss. 3. Stable remote lacunar infarction versus dilated perivascular space inferior left basal gangli a. POS: [facility]
--- NOTE | 2017-11-28 23:37 | CT ---
NONCONTRAST CT CERVICAL SPINE 11/28/17 HISTORY: Trauma. Unwitnessed fall. COMPARISON: 09/16/17. TECHNIQUE: Contiguous axial CT images are obtained through the cervical spine from the skull to the level of the T3 vertebral body. Sagittal and coronal reformat images are provided. FINDINGS: Multilevel degenerative changes are again seen in the cervical spine not significantly progressed wh en compared to the prior exam. There is trace anterolisthesis of C4 on C5 and C5 on C6 which is stabl e from prior exam. The vertebral body heights are within normal limits. No fracture is identified. Th ere is fusion of the posterior elements at the C2-3 level which is stable from prior study. There is bony encroachment on neural foramina are multiple levels due to facet hypertrophic changes and uncina te process hypertrophy, stable from prior study with moderate and severe degrees of neural foraminal narrowing seen. Prevertebral soft tissues are within normal limits. Prominent vascular calcifications are again seen in the carotid arteries. There is biapical pleural and parenchymal scarring again seen asymmetrically greater on the right which is stable from prior study. IMPRESSION: 1. Stable CT scan of the cervical spine with multilevel degenerative changes present. 2. No evidence of a fracture. 3. Trace anterolisthesis of C4 on C5 and C5 on C6 which is stable from prior study and likely re lated to facet hypertrophic changes. POS: [facility]
[2017-11-29 00:10] LABS: Bilirubin Negative (Negative); Blood, Urine Trace (Negative); Clarity CLOUDY (Clear); Glucose, Urine (Dipstick) Negative (Negative); Leukocyte Moderate (Negative); Nitrite Positive (Negative); Protein, Urine (Dipstick) 100 mg/dL (Neg-Trace); Specific Gravity, Urine 1.012 (1.002-1.036); Urobilinogen 0.2 mg/dL (0.2-1.0)
[2017-11-29 00:16] LABS: Bacteria/HPF 4+ HPF (None Seen); Hyaline Casts/LPF 0-3 HYALINE CAST LPF (0-3 Hyaline); Squamous Epithelial None Seen HPF (0-3)
[2017-11-29 00:25] LABS: RBC/HPF 0-3 HPF (0-3)
== END 2017-11-29 | disposition home or self-care (01) ==
LOC: ERS 21:53
DX: S09.90XA Unspecified injury of head, initial encounter (principal); S16.1XXA Strain of muscle, fascia and tendon at neck level, initial encounter; N39.0 Urinary tract infection, site not specified; I10 Essential (primary) hypertension; F41.9 Anxiety disorder, unspecified; Z79.899 Other long term (current) drug therapy; W17.89XA Other fall from one level to another, initial encounter
CPT/HCPCS: 51701; 70450; 72125; 80048; 81003; 81015; 85025; 87086

== ENCOUNTER 2018-01-04 08:31 | Inpatient (IN) | payer MEDICARE ==
[2018-01-04 09:05] LABS: #Basophils 0.1 thou/uL (0.0-0.2); #Lymphocytes 3.1 thou/uL (1.20-3.40); #Monocytes 0.5 thou/uL (0.11-0.59); #Neutrophils 4.1 thou/uL (1.40-6.50); %Eosinophils 0.6 % (0.0-10.0); %Lymphocytes 40.2 % (21.0-51.0); %Monocytes 6.1 % (0.0-10.0); %Neutrophils 52.1 % (42.0-75.0); Hemoglobin 12.1 g/dL (12.0-16.0); Mean Corpuscular HGB CONC 33.5 g/dL (32.0-36.0); Mean Corpuscular Hemoglobin 32.4 pg (27.0-31.0); Mean Corpuscular Volume 96.6 fL (78.0-98.0); Mean Platelet Volume 7.2 fL (7.4-10.4); Platelet Count 243 thou/uL (130-400); Red Blood Cell (RBC) Count 3.74 mill/uL (4.20-5.40); White Blood Cell (WBC) Count 7.8 thou/uL (4.8-10.8)
[2018-01-04 09:25] LABS: INR-International Normal Ratio 0.9; PTT 24.7 SEC (22.9-36.1); Prothrombin Time 12.6 SEC (12.0-14.7)
[2018-01-04 09:31] LABS: ALT (SGPT) 13 U/L (8-55); AST (SGOT) 18 U/L (5-34); Albumin 4.2 g/dL (3.4-4.8); Alkaline Phosphatase 99 U/L (40-150); Anion Gap 15 mmol/L (10-20); BUN (Urea Nitrogen) 25 mg/dL (9.8-20.1); Bilirubin, Total 0.6 mg/dL (0.2-1.2); Calc. Creatinine Clearance 0 mL/min (70-130); Calcium 10.6 mg/dL (7.8-10.44); Carbon Dioxide 19 mmol/L (23-31); Chloride 110 mmol/L (98-107); Estimated GFR-MDRD 43; Glucose 105 mg/dL (83-110); Protein, Total 7.2 g/dL (6.0-8.3); Sodium 140 mmol/L (136-145)
[2018-01-04 09:35] LABS: CKMB 2.4 ng/mL (0-6.6); Troponin I Less than 0.010 ng/mL (< 0.028)
--- NOTE | 2018-01-04 10:17 | RAD ---
AP PELVIS: HISTORY: Fell out of wheelchair. Complaining of pain. COMPARISON: 09/16/2017 FINDINGS: The bones are demineralized. Old appearing left superior and inferior pubic rami fractures are noted . A right hip prosthesis, a compression screw, and an intramedullary debbie are noted within the left h ip. All these change appear stable. Arthritic changes of the lower lumbar spine are seen. There papi ears to be some loss of vertebral body height at L5, but this appears similar to the prior exam. IMPRESSION: No definite acute changes. If there is a strong clinical suspicion of a pelvic fracture, CT would be recommended for better assessment, in view of the degree of bony demineralization. POS: [facility]
--- NOTE | 2018-01-04 10:18 | RAD ---
RADIOGRAPH CHEST 1 VIEW: HISTORY: An 87-year-old female status post acute chest trauma from fall. FINDINGS: There are no air space densities, pulmonary edema, pneumothorax, or cardiomegaly. The lateral costop hrenic angles are sharp. IMPRESSION: No acute cardiopulmonary findings. jn [] POS: [facility]
--- NOTE | 2018-01-04 10:25 | CT ---
CT OF THE CERVICAL SPINE WITHOUT CONTRAST: INDICATION: History of unwitnessed fall out of wheelchair with pain all over. COMPARISON: Prior CT of cervical spine dated 11/28/2017. FINDINGS: There is stable anterior translation of C3 on C4 and C4 on C5 which is likely degenerative. No acute fracture or subluxation is evident. Craniocervical junction appears within normal limits. There is mild pleural parenchymal scarring involving the lung apices which is stable. There is diffuse osteo penia and multilevel spondylosis which appears stable. IMPRESSION: No acute osseous abnormality. Stable spondylosis. POS: [facility]
--- NOTE | 2018-01-04 10:29 | CT ---
CT BRAIN WITHOUT CONTRAST: HISTORY: Fall. Altered mental status. COMPARISON: 11/28/2017 FINDINGS: Changes of chronic small vessel ischemic disease, cortical atrophy, and an old lacunar infarction teodora silvia a dilated perivascular space in the left basal ganglia are again seen. No evidence of ac resighini infarct, hemorrhage, midline shift, or abnormal extraaxial fluid collections is noted. The bony calvarium is intact. The visualized paranasal sinuses and mastoid air cells are well aerated. IMPRESSION: No CT evidence of acute intracranial process. POS: [facility]
[2018-01-04 11:46] LABS: Bilirubin Negative (Negative); Blood, Urine Negative (Negative); Clarity CLOUDY (Clear); Glucose, Urine (Dipstick) Negative (Negative); Leukocyte Small (Negative); Nitrite Positive (Negative); Protein, Urine (Dipstick) 100 mg/dL (Neg-Trace); Specific Gravity, Urine 1.014 (1.002-1.036); Urobilinogen 0.2 mg/dL (0.2-1.0); pH, Urine 7.5 (5.0-9.0)
[2018-01-04 11:49] LABS: Bacteria/HPF 4+ HPF (None Seen); Hyaline Casts/LPF 4-6 HYALINE CAST LPF (0-3 Hyaline); Pathc Cast-AUWi Flag 0.14 (0-2.49); Squamous Epithelial None Seen HPF (0-3)
[2018-01-04 12:28] LABS: RBC/HPF None Seen HPF (0-3)
[2018-01-04] MEDS ORDERED: cefTRIAXone\\ROCEPHIN 1 GM VIAL ONE (13:15)
[2018-01-04 15:31] LABS: Lactic Acid 1.4 mmol/L (0.5-2.2)
[2018-01-04] MEDS: Acetaminophen 325 MG TAB PO PRN ×2 (17:34→21:05)
[2018-01-04] MEDS ORDERED: Sodium Chloride 0.9% 1,000 ML IV SCH (19:00)
[2018-01-04] MEDS: Sodium Chloride 0.9% 1,000 ML IV SCH (19:10)
--- NOTE | 2018-01-04 19:13 | PRG ---
DATE OF SERVICE: 01/04/2018 I had a long discussion with the patient's daughter, Adelina Angel. The patient's sister, Maxine, had been taking care of the patient and had in fact lived with the patient for a period of time, but Maxine this summer and this is the first time the patient has been admitted with Adelina being the primary decision maker. Adelina lives in [place], [place]. I had a long discussion about the process, the rationale for keeping her mother here. She has unfortunately had numerous falls and several times where she has had evidence of urinary tract infection. I did explain in this particular case because of the renal indices which are worse than they have been in the past along with acidosis that it made sense to keep her here this particular time. She wanted to ensure that we knew the patient's baseline dementia was present and this was not the result of her urinary tract infection, which I assured her we did. She will continue with the patient's do not attempt resuscitation status. She believes that it is the patient's own wishes and that had been established previously with her sister as well. Job ID: [id number]
[2018-01-04 19:25] VITALS: BMI 31.4
[2018-01-04] MEDS ORDERED: ALPRAZolam 0.25 MG TAB PO PRN (20:09)
[2018-01-04] MEDS ORDERED: hydrALAZINE 25 MG TAB PO PRN (20:09)
[2018-01-04] MEDS ORDERED: PROVENTIL INHALER 6.7 G (200 INHALATIONS) INH PRN (20:09)
[2018-01-04] MEDS: Amlodipine 5 MG TAB PO SCH (20:56)
[2018-01-04] MEDS: busPIRone HCl 5 MG TAB PO SCH (20:56)
[2018-01-04] MEDS: Donepezil HCl 10 MG TAB PO SCH (20:57)
--- NOTE | 2018-01-04 23:32 | HP ---
CHIEF COMPLAINT: Fall. HISTORY OF PRESENT ILLNESS: This patient is an 87-year-old female with a history of repeated visits to the emergency department over the past year for falls. The patient has dementia. She lives in a long term facility and today she fell out of her wheelchair. There was some concern from the long term staff that the patient might have injured her head and therefore, they brought her to the hospital. The patient currently denies any pain. Says she only vaguely remembers falling out of her wheelchair. REVIEW OF SYSTEMS: Unreliable given the patient's underlying dementia. PAST MEDICAL HISTORY: Notable for the above-mentioned recurrent urinary tract infection, the last 4 of which have grown E. coli. She also has advanced dementia, hypertension, and osteoarthritis. PAST SURGICAL HISTORY: Left hip replacement. FAMILY HISTORY: Unobtainable. SOCIAL HISTORY: Based on the records, the patient has a history of smoking, but quit many years ago. No alcohol or recreational drugs. The patient was DNR in the past. Her daughter and next of kin is Adelina Angel. I have called Ms. Angel; however, she was unable to talk at this moment, keeping the patient full code until we can have more conversation with her regarding her status. ALLERGIES: NONE. CURRENT MEDICATIONS: 1. Donepezil 10 mg p.o. daily. 2. Amlodipine 5 mg p.o., b.i.d. 3. Escitalopram 10 mg daily. 4. Tylenol 500 mg b.i.d. 5. Buspar 50 mg t.i.d. 6. Colace 100 mg daily. 7. Melatonin 3 mg at bedtime. 8. Alprazolam 0.25 mg 2 p.o., p.r.n. 9. Hydralazine 25 mg every 8 hours. 10. Glucosamine/chondroitin. 11. Quetiapine 50 mg 2 p.o. at bedtime. 12. ProAir HFA 2 puffs every 6 hours p.r.n. 13. Keflex 500 mg every 12 hours. 14. Macrobid 100 mg p.o., b.i.d. PHYSICAL EXAMINATION: VITAL SIGNS: Blood pressure 184/96, pulse 84, respirations 16, O2 saturation 97% on room air. GENERAL APPEARANCE: Age-appropriate female. She is lying in a gurney in the emergency department. She has no evidence of distress. HEENT: Pupils are reactive. She has no OP lesions. NECK: Supple and symmetric. HEART: Regular rate and rhythm without murmurs, gallops or rubs. LUNGS: Clear to auscultation bilaterally. ABDOMEN: Soft, nontender, and nondistended. Positive bowel sounds. No masses. No organomegaly. EXTREMITIES: Warm and dry. She does have a small skin tear on the mid left forearm. She has a small old abrasion to left elbow. She has a corn at the left midfoot laterally. NEUROLOGIC: The patient has evidence of dementia with some confusion although she is very pleasant, interactive, and still has a sense of humor. PSYCH: The patient has generally normal affect. LABORATORY DATA: White count 7.8, hemoglobin 12.1, and platelets 243. INR is 0.9, PT 12.6, PTT 25. Sodium 140, potassium 4.0, chloride 110, CO2 is 19, BUN 25, creatinine is 1.19, lactic acid 3.3, calcium 10.6. LFT is normal. Urinalysis shows positive protein, positive nitrites, small leukocyte esterase, greater than 50 white cells, 0 red cells, and 4+ bacteria. DIAGNOSTIC DATA: Pelvis x-ray shows no change without evidence of fracture. CT of C-spine negative. CT of brain shows no evidence of acute intracranial process. Chest x-ray shows no acute cardiopulmonary findings. IMPRESSION AND PLAN: 1. Urinary tract infection. The patient has history of recurrent urinary tract infections over the last year. She has had 4, all growing Escherichia coli. Her most recent culture did show that it was sensitive to Rocephin. She has received Rocephin in the emergency department and will continue that for now. We will await cultures as she has those pending. 2. Sepsis. The patient has borderline evidence of sepsis with elevation of BUN and creatinine along with some acidosis and elevated lactic acid. The patient will receive hydration and appropriate antibiotics. 3. Acute renal failure. The patient's BUN and creatinine are elevated above her baseline. It should be around 0.9 to 1.0. Continue to monitor that with hydration. 4. Hypercalcemia, likely due to volume contraction. Should improve with hydration. We will recheck. 5. Hypertension. Continue with her usual home medications. 6. Dementia. Apparently has some evidence of behavior disturbance at the long term based on the medication regimen that she has. We will keep those intact although she shows no evidence of behavioral disturbance at the moment. 7. Disposition. This patient will need to be in the hospital at least 2 midnights to continue with IV fluids, IV antibiotics and followup on her cultures. She will be in inpatient status. Anticipate she will be able to return to the nursing facility at the time of the discharge. Job ID: [id number]
[2018-01-05 05:09] LABS: #Eosinphils 0.1 thou/uL (0.0-0.7); #Monocytes 0.8 thou/uL (0.11-0.59); #Neutrophils 3.8 thou/uL (1.40-6.50); %Basophils 0.2 % (0.0-1.0); %Eosinophils 1.3 % (0.0-10.0); %Lymphocytes 30.2 % (21.0-51.0); %Monocytes 11.5 % (0.0-10.0); %Neutrophils 56.8 % (42.0-75.0); Hemoglobin 9.9 g/dL (12.0-16.0); Mean Corpuscular HGB CONC 33.9 g/dL (32.0-36.0); Mean Corpuscular Hemoglobin 32.8 pg (27.0-31.0); Mean Corpuscular Volume 96.9 fL (78.0-98.0); Mean Platelet Volume 7.3 fL (7.4-10.4); Platelet Count 185 thou/uL (130-400); RBC Distribution Width 11.9 % (11.5-14.5); Red Blood Cell (RBC) Count 3.03 mill/uL (4.20-5.40); White Blood Cell (WBC) Count 6.7 thou/uL (4.8-10.8)
[2018-01-05 05:33] LABS: Anion Gap 13 mmol/L (10-20); BUN (Urea Nitrogen) 18 mg/dL (9.8-20.1); Calc. Creatinine Clearance 53 mL/min (70-130); Calcium 9.2 mg/dL (7.8-10.44); Carbon Dioxide 18 mmol/L (23-31); Chloride 111 mmol/L (98-107); Estimated GFR-MDRD 54; Glucose 95 mg/dL (83-110); Potassium 3.5 mmol/L (3.5-5.1); Sodium 138 mmol/L (136-145)
[2018-01-05] MEDS: Sodium Chloride 0.9% 1,000 ML IV SCH ×2 (07:57→21:36)
[2018-01-05] MEDS: Amlodipine 5 MG TAB PO SCH ×2 (07:58→20:30)
[2018-01-05] MEDS: busPIRone HCl 5 MG TAB PO SCH ×3 (07:58→20:30)
[2018-01-05] MEDS: Enoxaparin Sodium 30 MG/0.3 ML SYRINGE SC SCH (07:59)
[2018-01-05] MEDS: Docusate 100 MG CAP PO SCH (07:59)
[2018-01-05] MEDS ORDERED: Prevnar 13-Val Conj/PF 0.5 ML SYRINGE IM ONE (09:00)
[2018-01-05] MEDS ORDERED: Escitalopram Oxalate 10 mg Tablet PO SCH (09:00)
[2018-01-05] MEDS: cefTRIAXone\\ROCEPHIN 1 GM in Sodium Chloride 0.9% 100 ML IVPB SCH (13:58)
[2018-01-05] MEDS ORDERED: Melatonin 3 MG TAB PO PRN (14:27)
--- NOTE | 2018-01-05 19:48 | PDOC.PN ---
- Subjective Encounter Start Date: 01/05/18 Encounter Start Time: 09:45 Doing well. Has a friend visiting. Denies any pain or complaints. - Objective Resuscitation Status - Order Detail: 01/04/18 14:41 Resuscitation Status Routine Resuscitation Status: DNAR: NO Resuscitation Discussed with: Patient's daughter Adelina Angel Vital Signs & Weight: Vital Signs (12 hours) Temp Pulse Resp BP BP Pulse Ox 01/05/18 16:15 99.3 F 90 16 117/80 95 01/05/18 12:59 98.9 F 98 16 175/83 H 94 L 01/05/18 09:45 120/84 01/05/18 07:58 98 184/84 H 01/05/18 07:56 94 L Weight Admit Weight 182 lb 15.739 oz Weight 182 lb 15.739 oz I&O: 01/04/18 01/05/18 01/06/18 06:59 06:59 06:59 Intake Total 1340 1700 Balance 1340 1700 Result Diagrams: 01/05/18 04:36 01/05/18 04:36 Phys Exam - Physical Examination Constitutional: NAD Respiratory: no wheezing, no rales, no rhonchi, clear to auscultation bilateral Cardiovascular: RRR, no significant murmur, no rub Gastrointestinal: soft, non-tender, no distention, positive bowel sounds Musculoskeletal: no edema Psychiatric: normal affect Deviation from normal: Very awake and alert. Very appropriate and pleasant. Dx/Plan (1) Sepsis Code(s): A41.9 - SEPSIS, UNSPECIFIED ORGANISM Status: Acute Comment: Mild. Secondary to UTI. (2) UTI (urinary tract infection) Status: Acute (3) Dementia Code(s): F03.90 - UNSPECIFIED DEMENTIA WITHOUT BEHAVIORAL DISTURBANCE Status: Acute Comment: Continue donepezil, quetiapine, buspar. - Plan * Continue with the empiric Rocephin for the UTI. Hx of E. coli and last was sensitive to the Rocephin. * Mental status appears improved over admission. Likely at her baseline. * Await cultures and tailor abx.
[2018-01-05] MEDS: Donepezil HCl 10 MG TAB PO SCH (20:29)
[2018-01-05] MEDS: QUEtiapine Fumarate ER 50 MG TAB PO SCH (20:30)
[2018-01-05] MEDS ORDERED: QUEtiapine Fumarate ER 50 MG TAB PO SCH (21:00)
[2018-01-06 05:46] LABS: #Eosinphils 0.1 thou/uL (0.0-0.7); #Lymphocytes 2.3 thou/uL (1.20-3.40); #Monocytes 0.7 thou/uL (0.11-0.59); #Neutrophils 3.2 thou/uL (1.40-6.50); %Basophils 0.1 % (0.0-1.0); %Eosinophils 1.3 % (0.0-10.0); %Monocytes 10.7 % (0.0-10.0); %Neutrophils 51.9 % (42.0-75.0); Hemoglobin 9.3 g/dL (12.0-16.0); Mean Corpuscular HGB CONC 33.9 g/dL (32.0-36.0); Mean Corpuscular Hemoglobin 33.2 pg (27.0-31.0); Mean Platelet Volume 7.2 fL (7.4-10.4); Platelet Count 180 thou/uL (130-400); RBC Distribution Width 11.8 % (11.5-14.5); Red Blood Cell (RBC) Count 2.79 mill/uL (4.20-5.40); White Blood Cell (WBC) Count 6.3 thou/uL (4.8-10.8)
[2018-01-06 05:58] LABS: Anion Gap 11 mmol/L (10-20); BUN (Urea Nitrogen) 15 mg/dL (9.8-20.1); Calc. Creatinine Clearance 56 mL/min (70-130); Calcium 8.9 mg/dL (7.8-10.44); Carbon Dioxide 18 mmol/L (23-31); Chloride 114 mmol/L (98-107); Estimated GFR-MDRD 58; Glucose 98 mg/dL (83-110); Potassium 3.7 mmol/L (3.5-5.1); Sodium 139 mmol/L (136-145)
[2018-01-06] MEDS: Enoxaparin Sodium 30 MG/0.3 ML SYRINGE SC SCH (08:10)
[2018-01-06] MEDS: busPIRone HCl 5 MG TAB PO SCH ×2 (08:10→20:32)
[2018-01-06] MEDS: QUEtiapine Fumarate ER 50 MG TAB PO SCH ×2 (08:10→20:33)
[2018-01-06] MEDS: Escitalopram Oxalate 10 mg Tablet PO SCH (08:11)
[2018-01-06] MEDS: Docusate 100 MG CAP PO SCH (08:11)
[2018-01-06] MEDS: Amlodipine 5 MG TAB PO SCH ×2 (10:02→20:33)
[2018-01-06] MEDS: Sodium Chloride 0.9% 1,000 ML IV SCH (10:03)
[2018-01-06] MEDS: cefTRIAXone\\ROCEPHIN 1 GM in Sodium Chloride 0.9% 100 ML IVPB SCH (12:16)
[2018-01-06] MEDS: Donepezil HCl 10 MG TAB PO SCH (20:32)
--- NOTE | 2018-01-06 21:58 | PDOC.PN ---
- Subjective Encounter Start Date: 01/06/18 Encounter Start Time: 13:20 Doing well. No complaints. - Objective Resuscitation Status - Order Detail: 01/04/18 14:41 Resuscitation Status Routine Resuscitation Status: DNAR: NO Resuscitation Discussed with: Patient's daughter Adelina Angel Vital Signs & Weight: Vital Signs (12 hours) Temp Pulse Resp BP BP Pulse Ox 01/06/18 20:33 75 145/78 H 01/06/18 20:00 98.3 F 75 18 145/78 H 95 01/06/18 10:02 133/60 Weight Admit Weight 182 lb 15.739 oz Weight 182 lb 15.739 oz I&O: 01/05/18 01/06/18 01/07/18 06:59 06:59 06:59 Intake Total 1340 3000 Balance 1340 3000 Result Diagrams: 01/06/18 04:34 01/06/18 04:34 Phys Exam - Physical Examination Constitutional: NAD Dementia, but very pleasant. Respiratory: no wheezing, no rales, no rhonchi, clear to auscultation bilateral Cardiovascular: RRR, no significant murmur Gastrointestinal: soft, non-tender, no distention, positive bowel sounds Musculoskeletal: no edema Psychiatric: normal affect Dx/Plan (1) Sepsis Code(s): A41.9 - SEPSIS, UNSPECIFIED ORGANISM Status: Acute Comment: Mild. Secondary to UTI. (2) UTI (urinary tract infection) Status: Acute (3) Dementia Code(s): F03.90 - UNSPECIFIED DEMENTIA WITHOUT BEHAVIORAL DISTURBANCE Status: Acute Comment: Continue donepezil, quetiapine, buspar. - Plan * Recurrent falls at the MI. * Frequently diagnosed with UTI's when presenting after the falls. * Grows E. coli every time. * E. coli has different sensitivity each time. * Had slightly elevated lactic acid and BUN and creatinine. * Currently has two E. coli species growing with different sensitivity patterns. * Will change to meropenem to cover both. * Consult ID in am.
[2018-01-06] MEDS: MEROPENEM 1 GM/50 ML 1 GM in Premix Bag 1 BAG IVPB SCH (22:26)
[2018-01-07] MEDS: Sodium Chloride 0.9% 1,000 ML IV SCH ×2 (01:05→12:40)
[2018-01-07] MEDS: MEROPENEM 1 GM/50 ML 1 GM in Premix Bag 1 BAG IVPB SCH ×3 (05:02→22:18)
[2018-01-07] MEDS: QUEtiapine Fumarate ER 50 MG TAB PO SCH ×2 (08:31→19:58)
[2018-01-07] MEDS: Amlodipine 5 MG TAB PO SCH ×2 (08:31→19:59)
[2018-01-07] MEDS: Docusate 100 MG CAP PO SCH (08:31)
[2018-01-07] MEDS: busPIRone HCl 5 MG TAB PO SCH ×2 (08:31→19:58)
[2018-01-07] MEDS: Escitalopram Oxalate 10 mg Tablet PO SCH (08:31)
[2018-01-07] MEDS: Enoxaparin Sodium 30 MG/0.3 ML SYRINGE SC SCH (08:32)
--- NOTE | 2018-01-07 14:53 | PDOC.PN ---
- Subjective Encounter Start Date: 01/07/18 Encounter Start Time: 12:10 Doing ok. Patient is without complaints. - Objective Resuscitation Status - Order Detail: 01/04/18 14:41 Resuscitation Status Routine Resuscitation Status: DNAR: NO Resuscitation Discussed with: Patient's daughter Adelina Angel Vital Signs & Weight: Vital Signs (12 hours) Temp Pulse Resp BP Pulse Ox 01/07/18 11:09 98 F 79 19 165/76 H 94 L 01/07/18 08:31 91 01/07/18 07:32 97.7 F 91 18 113/66 99 Weight Admit Weight 182 lb 15.739 oz Weight 182 lb 15.739 oz I&O: 01/06/18 01/07/18 01/08/18 06:59 06:59 06:59 Intake Total 3000 1200 Balance 3000 1200 Result Diagrams: 01/06/18 04:34 01/06/18 04:34 Phys Exam - Physical Examination Constitutional: NAD Respiratory: no wheezing, no rales, no rhonchi Cardiovascular: RRR, no significant murmur, no rub Gastrointestinal: soft, non-tender, no distention, positive bowel sounds Musculoskeletal: no edema Neurological: non-focal Psychiatric: normal affect Dx/Plan (1) Sepsis Code(s): A41.9 - SEPSIS, UNSPECIFIED ORGANISM Status: Resolved Comment: Mild. Secondary to UTI. (2) UTI (urinary tract infection) Status: Acute Comment: Two different strains of E. coli. Recurrent E. coli bactiuria. (3) Dementia Code(s): F03.90 - UNSPECIFIED DEMENTIA WITHOUT BEHAVIORAL DISTURBANCE Status: Acute Comment: Continue donepezil, quetiapine, buspar. - Plan * Await ID input. Has recurrent E. coli bactiuria. Had some concerning features on this admission that compelled treatment. Need to determine if aggressive treatment is indicated or not. * If not considered colonization, may need eval for the recurrent nature of the problem. * On Meropenem which will cover both organisms.
--- NOTE | 2018-01-07 16:45 | ULT ---
ULTRASOUND RETROPERITONEUM COMPLETE: (RENAL) 01/07/2018 HISTORY: An 87-year-old female with pyelonephritis. FINDINGS: The right kidney is 11 x 5 x 4.5 cm. No moderate-size or large solid or cystic right renal lesion. No right-sided hydronephrosis. The left kidney is atrophic and very small. It is dominated by an approximately 3 x 2.5 x 3.5 cm exo phytic cyst, which has a daughter or satellite cyst by septation from it. The left atrophi c renal parenchyma is poorly visualized. There is no left-sided hydronephrosis. The urinary bladder is distended. Mural thickness is at the upper limits of normal. IMPRESSION: 1. No hydronephrosis of the right kidney. 2. Atrophic, very small left kidney. 3. Exophytic, moderate-sized left renal cyst. DONAVAN Zamarripa POS: VAIBHAV
--- NOTE | 2018-01-07 16:52 | CON ---
DATE OF CONSULTATION: 01/07/2018 REASON FOR CONSULTATION: Invasive UTI. HISTORY OF PRESENT ILLNESS: An 87-year-old with history of dementia, currently admitted to an Alzheimer[facility] Unit in [facility] and history of fall, who was brought to the emergency room for evaluation, was found to have abnormal creatinine and elevated lactate and abnormal urinalysis. The patient has been treated with broad-spectrum antimicrobial coverage and resistant pathogen has been retrieved from the urinary tract. Currently, she is awake. She has some cognitive dysfunction. REVIEW OF SYSTEMS: Somewhat limited, but she denies any headaches. No respiratory symptoms or abdominal pain. She is voiding without any catheters. PAST MEDICAL HISTORY: Includes dementia, prior UTIs, hypertension, and osteoarthritis. PAST SURGICAL HISTORY: Left hip replacement. FAMILY HISTORY: Noncontributory. SOCIAL HISTORY: Lives at [facility]. Former history of smoking. ALLERGIES: NONE. CURRENT MEDICATIONS LIST: 1. Tylenol. 2. Proventil. 3. Xanax. 4. Norvasc. 5. BuSpar. 6. Colace. 7. Aricept. 8. Lovenox. 9. Lexapro. 10. Melatonin. 11. Namenda. 12. Meropenem. 13. Seroquel. PHYSICAL EXAMINATION: VITAL SIGNS: The patient has been afebrile since admission. T-max 99.2. Other vital signs not remarkable. SKIN: Skin exam with a small right elbow area of ulceration with scab and mild erythema and she has left arm with an area of triangular-shaped ulceration with the yellow base. Mild erythema surrounding the ulcer. Some foot superficial areas of tissue injury. Peripheral IV access. She is voiding in the diaper. HEENT: Ocular movements conjugate. Oral cavity with no remarkable findings. NECK: Supple. No jugular venous distention. LUNGS: Symmetric. Clear breath sounds. HEART: S1 and S2. Regular rate. No S3 or S4. ABDOMEN: Soft, not distended or tender. No ascites. No bladder distention. EXTREMITIES: No joint inflammatory activity. Able to move extremities on command. NEUROLOGIC: Difficulty in recollection of the events. LABORATORY DATA: White cell count has been normal through the hospital stay. Hemoglobin 9.3 and platelets 180 with normal differential. Chemistry with creatinine of 0.92, which is down from admission. Sodium 140. Liver profile normal. Albumin 4.2. Urinalysis with greater than 50 wbc's. There are 2 different strains of E. coli, both ESBL positive. Two sets of blood cultures negative. ASSESSMENT: 1. Dementia, possibly Alzheimer's. 2. Urinary tract infection, some evidence to suggest a more invasive process. DISCUSSION: At this time, we will recommend continuation of Invanz in the outpatient setting for a total of 10 to 14 days. PICC line placement. Check ultrasound of the kidneys and check postvoid residual. Job ID: [id number]
[2018-01-07] MEDS: Donepezil HCl 10 MG TAB PO SCH (19:59)
[2018-01-07] MEDS: ALPRAZolam 0.25 MG TAB PO PRN (22:18)
[2018-01-08] MEDS: MEROPENEM 1 GM/50 ML 1 GM in Premix Bag 1 BAG IVPB SCH ×3 (05:45→21:09)
[2018-01-08] MEDS: Sodium Chloride 0.9% 1,000 ML IV SCH ×2 (05:45→19:56)
[2018-01-08] MEDS: busPIRone HCl 5 MG TAB PO SCH ×2 (09:00→19:55)
[2018-01-08] MEDS: Amlodipine 5 MG TAB PO SCH ×2 (09:01→20:02)
[2018-01-08] MEDS: Escitalopram Oxalate 10 mg Tablet PO SCH (09:01)
[2018-01-08] MEDS: Docusate 100 MG CAP PO SCH (09:01)
[2018-01-08] MEDS: Enoxaparin Sodium 30 MG/0.3 ML SYRINGE SC SCH (09:01)
[2018-01-08] MEDS: QUEtiapine Fumarate ER 50 MG TAB PO SCH ×2 (09:01→20:12)
--- NOTE | 2018-01-08 12:03 | SPC ---
LEFT-SIDED PICC LINE WITH ULTRASOUND GUIDANCE: HISTORY: Urinary tract infection. Long-term IV antibiotics. COMPARISON: None. EXPOSURE: 0.2 minutes. 331 mGy per cm2. FINDINGS: Successful ultrasound-guided left upper extremity PICC line placement. Trim length is 44 cm. The di stal tip projects over the right atrium. TECHNIQUE: Consent obtained to perform a right upper extremity PICC line placement. The right arm was prepped a nd draped in a sterile fashion. Lidocaine 1% buffered with sodium bicarbonate was used for local ane sthesia. Under ultrasound guidance, a micropuncture needle was used to cannulate the basilic vein. A 0.018 guidewire was advanced through the needle, to the level of the right atrium. The tract was d ilated. A single-lumen, 5-Latvian catheter was advanced over the wire. The wire was removed. The ca theter flushes and aspirates without difficulty. Trim length was 44 cm. IMPRESSION: Successful left upper extremity peripherally inserted central catheter line placement with ultrasound guidance. POS: VAIBHAV
[2018-01-08] MEDS: Donepezil HCl 10 MG TAB PO SCH (19:56)
[2018-01-08] MEDS: ALPRAZolam 0.25 MG TAB PO PRN (19:56)
--- NOTE | 2018-01-08 20:37 | PDOC.PN ---
- Subjective Encounter Start Date: 01/08/18 Encounter Start Time: 13:00 Doing well. Had a fall this morning with no injury. Her friend/rig manager has spoken to Adelina (patient's daughter) and they would like to consider the possibility of rehab to try to reduce the falls. - Objective Resuscitation Status - Order Detail: 01/04/18 14:41 Resuscitation Status Routine Resuscitation Status: DNAR: NO Resuscitation Discussed with: Patient's daughter Adelina Angel Vital Signs & Weight: Vital Signs (12 hours) Temp Pulse Resp BP BP Pulse Ox 01/08/18 20:02 90 184/64 H 01/08/18 20:00 97.3 F L 51 L 20 159/73 H 94 L 01/08/18 09:01 86 Weight Admit Weight 182 lb 15.739 oz Weight 182 lb 15.739 oz I&O: 01/07/18 01/08/18 01/09/18 06:59 06:59 06:59 Intake Total 1200 2490 880 Balance 1200 2490 880 Result Diagrams: 01/06/18 04:34 01/06/18 04:34 Phys Exam - Physical Examination Constitutional: NAD Respiratory: no wheezing, no rales, no rhonchi, clear to auscultation bilateral Cardiovascular: RRR, no significant murmur Gastrointestinal: soft, non-tender, no distention, positive bowel sounds Musculoskeletal: no edema Psychiatric: normal affect Deviation from normal: Pleasantly demented. Dx/Plan (1) Sepsis Code(s): A41.9 - SEPSIS, UNSPECIFIED ORGANISM Status: Resolved Comment: Mild. Secondary to UTI. (2) UTI (urinary tract infection) Status: Acute Comment: Two different strains of E. coli. Recurrent E. coli bactiuria. Seen by Dr. Flores. Concerned for possible invasive cystitis or pathology. Had US without significant findings other than renal cyst. PVR's not significant, but difficult because of incont. PICC placed to continue Invanz (3) Dementia Code(s): F03.90 - UNSPECIFIED DEMENTIA WITHOUT BEHAVIORAL DISTURBANCE Status: Acute Comment: Continue donepezil, quetiapine, buspar. 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 No hydro. (5) Frequent falls Code(s): R29.6 - REPEATED FALLS Status: Acute Comment: Has dementia, falls and urinary incontinence. May have some NPH. OT, PT eval. Rehab eval. - Plan * PICC placed. * Continue Meropenem for E. coli UTI. * Rehab eval for falls.
[2018-01-09] MEDS: Sodium Chloride 0.9% 1,000 ML IV SCH ×2 (02:43→18:24)
[2018-01-09] MEDS: MEROPENEM 1 GM/50 ML 1 GM in Premix Bag 1 BAG IVPB SCH ×3 (06:29→21:44)
[2018-01-09] MEDS: QUEtiapine Fumarate ER 50 MG TAB PO SCH ×2 (08:35→20:08)
[2018-01-09] MEDS: Docusate 100 MG CAP PO SCH (08:35)
[2018-01-09] MEDS: busPIRone HCl 5 MG TAB PO SCH ×2 (08:35→20:06)
[2018-01-09] MEDS: Escitalopram Oxalate 10 mg Tablet PO SCH (08:36)
[2018-01-09] MEDS: Enoxaparin Sodium 30 MG/0.3 ML SYRINGE SC SCH (08:36)
[2018-01-09] MEDS: Amlodipine 5 MG TAB PO SCH ×2 (08:36→20:06)
--- NOTE | 2018-01-09 14:53 | PDOC.PN ---
- Subjective Encounter Start Date: 01/09/18 Encounter Start Time: 14:22 Subjective: Patient found resting. Doing well and without any complaints. -: Family requested rehab to reduce risk of falls. CSM reviewing options. -: PICC line in place (LUE). - Objective Resuscitation Status - Order Detail: 01/04/18 14:41 Resuscitation Status Routine Resuscitation Status: DNAR: NO Resuscitation Discussed with: Patient's daughter Adelina JONAS Reviewed: Yes Vital Signs & Weight: Vital Signs (12 hours) Temp Pulse Resp BP BP Pulse Ox 01/09/18 12:29 69 01/09/18 08:36 69 01/09/18 08:00 97 01/09/18 07:43 97.5 F L 69 20 195/80 H 97 01/09/18 05:34 98.7 F 64 20 132/77 96 Weight Admit Weight 182 lb 15.739 oz Weight 182 lb 15.739 oz I&O: 01/08/18 01/09/18 01/10/18 06:59 06:59 06:59 Intake Total 2490 2280 Balance 2490 2280 Result Diagrams: 01/06/18 04:34 01/06/18 04:34 Phys Exam - Physical Examination HEENT: PERRLA, moist MMs, oral pharynx no lesions Neck: no nodes, no JVD, supple Respiratory: no wheezing, no rales, no rhonchi, clear to auscultation bilateral Cardiovascular: RRR, no significant murmur Gastrointestinal: soft, non-tender, no distention, positive bowel sounds Musculoskeletal: no edema, pulses present Neurological: normal sensation Lymphatic: no nodes Psychiatric: normal affect Deviation from normal: Pleasant, known dementia Skin: no rash, normal turgor, cap refill <2 seconds Deviation from normal: PICC line in Left Upper Extremity, no surrounding swelling, redness, warmth Dx/Plan (1) Sepsis Code(s): A41.9 - SEPSIS, UNSPECIFIED ORGANISM Status: Resolved Comment: Mild. Secondary to UTI. (2) UTI (urinary tract infection) Status: Acute Comment: Two different strains of E. coli. Recurrent E. coli bactiuria. Seen by Dr. Flores. Concerned for possible invasive cystitis or pathology. Had US without significant findings other than renal cyst. PVR's not significant, but difficult because of incont. PICC placed to continue Invanz (3) Dementia Code(s): F03.90 - UNSPECIFIED DEMENTIA WITHOUT BEHAVIORAL DISTURBANCE Status: Acute Comment: Continue donepezil, quetiapine, buspar. (4) Frequent falls Code(s): R29.6 - REPEATED FALLS Status: Acute Comment: Has dementia, falls and urinary incontinence. May have some NPH. OT, PT eval. Rehab eval. Family requesting rehab as an effort to reduce risk of falls. - Plan PICC line in place with plans for discharge home on IV Abx (Invanz) -: Awaiting plans for disposition, rehab vs. [facility]. -: CSM aware of family requests for rehab, patient has assisted devices. -: CSM will d/w family and review options for rehab. * .
--- NOTE | 2018-01-09 15:54 | PDOC.EVN ---
Event Note - Event Note Event Note: Ms. Fonseca was seen today with Ms. Savana Mendenhall in follow-up of UTI. She has advanced Alzheimers, and can not communicate her concerns. She is laying in bed and appears comfortable. I agree with the physical findings documented by Ms. Sutherlandoska. She has had the PICC line placed, and the plan is to continue Invanz for a total of 10-14 days The plan is to return to [facility] at discharge if they are able to manage the IV antibiotics vs. Rehab
[2018-01-09] MEDS: Donepezil HCl 10 MG TAB PO SCH (20:06)
[2018-01-10] MEDS: Sodium Chloride 0.9% 1,000 ML IV SCH (04:23)
[2018-01-10] MEDS: MEROPENEM 1 GM/50 ML 1 GM in Premix Bag 1 BAG IVPB SCH ×3 (05:04→21:26)
[2018-01-10] MEDS: Docusate 100 MG CAP PO SCH (10:53)
[2018-01-10] MEDS: Amlodipine 5 MG TAB PO SCH ×2 (10:53→21:21)
[2018-01-10] MEDS: Escitalopram Oxalate 10 mg Tablet PO SCH (10:53)
[2018-01-10] MEDS: busPIRone HCl 5 MG TAB PO SCH ×2 (10:53→21:21)
[2018-01-10] MEDS: Enoxaparin Sodium 30 MG/0.3 ML SYRINGE SC SCH (10:54)
[2018-01-10] MEDS: QUEtiapine Fumarate ER 50 MG TAB PO SCH ×2 (10:54→21:25)
[2018-01-10] MEDS ORDERED: Heparin 1,000 UNITS/ML VIAL ONE (14:58)
--- NOTE | 2018-01-10 18:06 | PDOC.PN ---
- Subjective Encounter Start Date: 01/10/18 Encounter Start Time: 18:00 Subjective: f/u for UTI on current Invanz with plans for tx x 10-14 days upon -: returning [facility]. States feeling ok but ready to leave. - Objective Resuscitation Status - Order Detail: 01/04/18 14:41 Resuscitation Status Routine Resuscitation Status: DNAR: NO Resuscitation Discussed with: Patient's daughter Adelina JONAS Reviewed: Yes Vital Signs & Weight: Vital Signs (12 hours) Temp Pulse Resp BP BP Pulse Ox 01/10/18 16:54 98.9 F 75 18 121/73 96 01/10/18 11:59 98.4 F 76 18 147/78 H 97 01/10/18 10:53 80 129/66 01/10/18 07:21 98.5 F 80 16 129/66 96 Weight Admit Weight 182 lb 15.739 oz Weight 182 lb 15.739 oz I&O: 01/09/18 01/10/18 01/11/18 06:59 06:59 06:59 Intake Total 2280 2865 240 Balance 2280 2865 240 Result Diagrams: 01/06/18 04:34 01/06/18 04:34 Additional Labs: Microbiology 01/04/18 11:23 Urine clean catch Urine Culture - Final Escherichia coli Escherichia coli#2 01/04/18 10:07 Venous blood - Left Hand Blood Culture - Final NO GROWTH IN 5 DAYS 01/04/18 08:58 Venous blood - Right Arm Blood Culture - Final NO GROWTH IN 5 DAYS Laboratory Tests 01/04/18 01/04/18 01/05/18 08:58 08:58 04:36 Hgb 12.1 Creatinine 1.19 H 0.98 01/05/18 04:36 Hgb 9.9 L Creatinine Phys Exam - Physical Examination Constitutional: NAD HEENT: PERRLA, sclera anicteric, oral pharynx no lesions Neck: no nodes, no JVD, supple, full ROM Respiratory: no wheezing, no rales, no rhonchi, clear to auscultation bilateral S1, S2 Cardiovascular: RRR, no significant murmur, no rub, gallop Gastrointestinal: soft, non-tender, no distention, positive bowel sounds LUE with PICC line in place Musculoskeletal: no edema, pulses present Neurological: normal sensation, moves all 4 limbs A x O x 1 Skin: normal turgor, cap refill <2 seconds Dx/Plan (1) UTI (urinary tract infection) Status: Acute Comment: Two different strains of E. coli. PICC placed to continue Invanz x 10-14 days (2) Dementia Code(s): F03.90 - UNSPECIFIED DEMENTIA WITHOUT BEHAVIORAL DISTURBANCE Status: Chronic Comment: Advanced, continue donepezil, quetiapine, buspar. (3) Fall Code(s): W19.XXXA - UNSPECIFIED FALL, INITIAL ENCOUNTER Status: Acute Comment: Multiple falls, PT for ambulation, fall risk mitigation (4) Weakness Code(s): R53.1 - WEAKNESS Status: Chronic (5) Sepsis Code(s): A41.9 - SEPSIS, UNSPECIFIED ORGANISM Status: Acute Comment: Resolving with supportive mgmt and Invanz - Plan plan discussed w/ family, continue antibiotics, PT/OT, health care social worker, out of bed/ambulate, DVT proph w/SCDs Stable currently -: Continue Invanz for 10-14 days -: SNF options per CM -: [facility] -: Likely d/c in next 24h * .
[2018-01-10] MEDS: Donepezil HCl 10 MG TAB PO SCH (21:24)
[2018-01-11] MEDS: MEROPENEM 1 GM/50 ML 1 GM in Premix Bag 1 BAG IVPB SCH ×2 (05:18→15:19)
[2018-01-11] MEDS: Docusate 100 MG CAP PO SCH (08:58)
[2018-01-11] MEDS: Escitalopram Oxalate 10 mg Tablet PO SCH (08:58)
[2018-01-11] MEDS: busPIRone HCl 5 MG TAB PO SCH (08:58)
[2018-01-11] MEDS: QUEtiapine Fumarate ER 50 MG TAB PO SCH (08:58)
[2018-01-11] MEDS: Amlodipine 5 MG TAB PO SCH (08:58)
[2018-01-11] MEDS: Enoxaparin Sodium 30 MG/0.3 ML SYRINGE SC SCH (08:58)
[2018-01-11] MEDS ORDERED: Ertapenem 1 GM in Sodium Chloride 0.9% 100 ML IVPB SCH (12:00)
[2018-01-11 16:15] VITALS: BP 151/77; TEMP 99.5
--- NOTE | 2018-01-12 07:03 | DIS ---
DATE OF ADMISSION: 01/04/2018 DATE OF DISCHARGE: 01/11/2018 DISCHARGE DIAGNOSES: 1. Urinary tract infection with Escherichia coli species. 2. 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 3. Recurrent falls. 4. Generalized weakness. 5. Sepsis secondary to #1, resolved. 6. Acute kidney injury, resolved. CONSULTATIONS: Dr. Sherman Flores with Infectious Disease Service. PERTINENT LAB AND X-RAY FINDINGS: Creatinine ranged between 0.92 to 1.19. Estimated GFR ranged between 43 to 58. Lactic acid level ranged between 1.4 to 2.3. Calcium ranged between 8.9 to 10.6. LFTs within normal limits. Albumin 4.2. CBC showed a white blood cell count ranged between 6.3 to 7.8, hemoglobin ranged between 9.3 to 12.1. Urine culture, dated 01/04/2018, showed two species of E coli sensitive to meropenem. Blood cultures x2, dated 01/04/2018, showed no growth at 5 days. Portable chest x-ray, dated 01/04/2018, showed no acute cardiopulmonary process. CT of the brain without contrast, dated 01/04/2018, showed no acute intracranial process, generalized chronic ischemic small-vessel changes noted with cortical atrophy. CT of the cervical spine, dated 01/04/2018, showed no acute process. Pelvic radiographs, dated 01/04/2018, showed no acute fracture. Renal ultrasound, dated 01/07/2018, showed no hydronephrosis. Atrophic left kidney. HOSPITAL COURSE: The patient was admitted to the medical floor after initially presenting status post recurrent falls. The patient underwent extensive evaluation including multiple imaging modalities, which showing no evidence of acute neurologic or osseous abnormality. The patient was noted with urinary tract infection with E coli species. The patient was placed on Rocephin initially, however, due to two separate E coli species, the patient was evaluated by the Infectious Disease Service. The patient was transitioned to meropenem after sensitivities were reviewed. Due to the resistance pattern noted on urine culture, recommendations per Infectious Disease were to continue IV antibiotic therapy for approximately 10 to 14 days after discharge. The patient underwent placement of a PICC line to the left upper extremity without complication on 01/08/2018. The patient received general supportive management in addition to IV fluids with overall resolution of acute kidney injury and dehydration. The patient mentating at baseline status in the context of advanced dementia and Alzheimer disease. I have examined the patient at the time of discharge and discussed disposition with the patient's daughter over the phone, who verbalized understanding and in agreement. The patient overall clinically stable and ready for discharge on 01/11/2018. DISCHARGE MEDICATIONS: 1. Acetaminophen 1000 mg p.o. b.i.d. p.r.n. 2. Albuterol sulfate 1.25 mg nebulized q.6 hours p.r.n. 3. ProAir HFA two puffs inhaled q.6 hours p.r.n. 4. Xanax 0.5 mg p.o. at bedtime p.r.n. 5. Amlodipine 5 mg p.o. b.i.d. 6. BuSpar 15 mg p.o. b.i.d. 7. Calcium carbonate with vitamin D one tablet p.o. b.i.d. 8. Donepezil 10 mg p.o. at bedtime. 9. Lexapro 10 mg p.o. daily. 10. Glucosamine chondroitin 1 tablet p.o. at bedtime. 11. Hydralazine 25 mg p.o. t.i.d. 12. Loratadine 10 mg p.o. daily. 13. Melatonin 3 mg p.o. at bedtime. 14. Memantine 10 mg p.o. b.i.d. 15. Seroquel 50 mg p.o. b.i.d. 16. Invanz 1 g IV daily until 01/22/2018. FOLLOWUP: The patient may follow up with Dr. Bartolo Dennison. CONDITION ON DISCHARGE: Stable. ACTIVITY: Ad angelo. DIET: Regular. CODE STATUS: Do not attempt resuscitation. DISPOSITION: Discharged to [facility] on 01/11/2018. Job ID: [id number]
== END 2018-01-11 18:29 | disposition home or self-care (01) | DRG 872 ==
LOC: ERS 08:31 → OBSVTOIN 15:29 → T4-A 15:29
PROVIDERS: ADMIT Internal Medicine; ATTEND Internal Medicine
PROC: 02H633Z Insertion of Infusion Device into Right Atrium, Percutaneous Approach (ICD-10-PCS; principal; 2018-01-08)
DX: A41.51 Sepsis due to Escherichia coli [E. coli] (principal); N39.0 Urinary tract infection, site not specified; N17.9 Acute kidney failure, unspecified; Z91.81 History of falling; F03.90 Unspecified dementia, unspecified severity, without behavioral disturbance, psychotic disturbance, mood disturbance, and anxiety; I10 Essential (primary) hypertension; M19.90 Unspecified osteoarthritis, unspecified site; Z87.891 Personal history of nicotine dependence; E83.52 Hypercalcemia; G30.9 Alzheimer's disease, unspecified; F02.80 Dementia in other diseases classified elsewhere, unspecified severity, without behavioral disturbance, psychotic disturbance, mood disturbance, and anxiety
CPT/HCPCS: 36415; 36569; 51701; 70450; 71045; 72125; 72170; 76770; 80048; 80053; 81003; 81015; 82553; 83605; 84484; 85025; 85610; 85730; 87040; 87077; 87086; 87186; 93005; 96361; 96374; A4353; C1751; G8978-GP-CN; G8979-GP-CK; G8987-GO-CN; G8988-GO-CN; G8989-GO-CN; J0696; J1335; J1644; J1650; J2185; J7050

== ENCOUNTER 2018-01-14 18:45 | Emergency (ER) | payer MEDICARE ==
[2018-01-14 19:47] LABS: #Eosinphils 0.1 thou/uL (0.0-0.7); #Lymphocytes 2.6 thou/uL (1.20-3.40); #Monocytes 0.8 thou/uL (0.11-0.59); #Neutrophils 4.3 thou/uL (1.40-6.50); %Basophils 0.6 % (0.0-1.0); %Eosinophils 0.8 % (0.0-10.0); %Lymphocytes 33.7 % (21.0-51.0); %Monocytes 10.4 % (0.0-10.0); %Neutrophils 54.5 % (42.0-75.0); Mean Corpuscular HGB CONC 33.6 g/dL (32.0-36.0); Mean Corpuscular Hemoglobin 33.1 pg (27.0-31.0); Mean Corpuscular Volume 98.4 fL (78.0-98.0); Mean Platelet Volume 8.1 fL (7.4-10.4); Platelet Count 157 thou/uL (130-400); RBC Distribution Width 11.7 % (11.5-14.5); Red Blood Cell (RBC) Count 3.04 mill/uL (4.20-5.40); White Blood Cell (WBC) Count 7.8 thou/uL (4.8-10.8)
--- NOTE | 2018-01-14 20:06 | RAD ---
PORTABLE CHEST ONE VIEW: HISTORY: An 88-year-old female with a history of cough. COMPARISON: 01/04/2018 FINDINGS: Left PICC line. Monitor leads overly the chest. Rotation to the right. Surgical clips overly the l eft chest. Moderate sized hiatal hernia. Stable increased linear and interstitial markings bilatera lly without confluent pneumonia, overt edema, or pleural effusion, given less inspiration. IMPRESSION: 1. Less inspiratory effort. 2. No significant new process. 3. Hiatal hernia. 4. Atherosclerosis of the aorta with ectasia. 5. No evidence for pneumonia. POS: [facility]
[2018-01-14 20:11] LABS: ALT (SGPT) 11 U/L (8-55); AST (SGOT) 17 U/L (5-34); Albumin 3.4 g/dL (3.4-4.8); Alkaline Phosphatase 73 U/L (40-150); Anion Gap 12 mmol/L (10-20); BUN (Urea Nitrogen) 27 mg/dL (9.8-20.1); Bilirubin, Total 0.2 mg/dL (0.2-1.2); CK (CPK) 47 U/L (29-168); Calc. Creatinine Clearance 0 mL/min (70-130); Calcium 9.5 mg/dL (7.8-10.44); Carbon Dioxide 24 mmol/L (23-31); Chloride 108 mmol/L (98-107); Estimated GFR-MDRD 37; Globulin 2.4 g/dL (2.4-3.5); Glucose 113 mg/dL (83-110); Potassium 3.1 mmol/L (3.5-5.1); Protein, Total 5.8 g/dL (6.0-8.3); Sodium 141 mmol/L (136-145)
[2018-01-14 20:29] LABS: CKMB 1.6 ng/mL (0-6.6)
[2018-01-14] MEDS ORDERED: Potassium Bicarbonate/Cit Ac 25 MEQ TAB PO SCH (21:15)
== END 2018-01-14 23:04 | disposition home or self-care (01) ==
LOC: ERS 18:45
DX: R06.2 Wheezing (principal); I25.10 Atherosclerotic heart disease of native coronary artery without angina pectoris; K44.9 Diaphragmatic hernia without obstruction or gangrene; D50.9 Iron deficiency anemia, unspecified; E78.5 Hyperlipidemia, unspecified; I10 Essential (primary) hypertension; M19.90 Unspecified osteoarthritis, unspecified site; F41.9 Anxiety disorder, unspecified; F03.90 Unspecified dementia, unspecified severity, without behavioral disturbance, psychotic disturbance, mood disturbance, and anxiety; Z79.899 Other long term (current) drug therapy
CPT/HCPCS: 36415; 71045; 80053; 82550; 82553; 83605; 84484; 85025; 85652; 86140; 93005; 94640; J7620

== ENCOUNTER 2018-01-19 08:44 | Emergency (ER) | payer MEDICARE ==
[2018-01-19 10:03] LABS: #Eosinphils 0.2 thou/uL (0.0-0.7); #Monocytes 0.5 thou/uL (0.11-0.59); #Neutrophils 5.1 thou/uL (1.40-6.50); %Basophils 0.2 % (0.0-1.0); %Eosinophils 2.7 % (0.0-10.0); %Monocytes 6.2 % (0.0-10.0); %Neutrophils 64.9 % (42.0-75.0); Hemoglobin 10.9 g/dL (12.0-16.0); Mean Corpuscular HGB CONC 33.5 g/dL (32.0-36.0); Mean Corpuscular Hemoglobin 32.2 pg (27.0-31.0); Mean Platelet Volume 7.7 fL (7.4-10.4); Platelet Count 169 thou/uL (130-400); RBC Distribution Width 11.7 % (11.5-14.5); Red Blood Cell (RBC) Count 3.39 mill/uL (4.20-5.40); White Blood Cell (WBC) Count 7.8 thou/uL (4.8-10.8)
--- NOTE | 2018-01-19 10:07 | CT ---
CT OF THE BRAIN WITHOUT CONTRAST: Date: 01/19/18 COMPARISON: 01/04/18. HISTORY: Fall. History of Alzheimer's disease. Head trauma. TECHNIQUE: Multiple contiguous axial images were obtained in a CT of the brain without contrast. FINDINGS: There are scattered hypodensities in the subcortical and periventricular white matter, likely seconda ry to small vessel ischemic disease. Cerebral atrophy is seen. There is no evidence of hydrocephalus, intracranial hemorrhage, or extra-axial fluid collection. There is soft tissue swelling in the right forehead. Underlying calvarium is unremarkable. There is a small amount of fluid in the left maxillary sinus. The other paranasal sinuses and mastoid air cells are well aerated. IMPRESSION: No evidence of acute intracranial abnormality. POS: [facility]
--- NOTE | 2018-01-19 10:16 | RAD ---
SINGLE VIEW CHEST: Date: 01/19/18 COMPARISON: 01/14/18. HISTORY: Cough. Alzheimer's disease. Fall with hematoma to forehead. FINDINGS: Single view of chest shows enlarged cardiomediastinal silhouette. The PICC line is unchanged in posit ion. There is no evidence of consolidation, mass, or pleural effusion. IMPRESSION: No evidence of acute cardiopulmonary disease. POS: [facility]
[2018-01-19 10:21] LABS: Bilirubin Negative (Negative); Blood, Urine Negative (Negative); Clarity CLEAR (Clear); Glucose, Urine (Dipstick) Negative (Negative); Leukocyte Negative (Negative); Nitrite Negative (Negative); Protein, Urine (Dipstick) 100 mg/dL (Neg-Trace); Urobilinogen 0.2 mg/dL (0.2-1.0)
[2018-01-19 10:22] LABS: ALT (SGPT) 17 U/L (8-55); AST (SGOT) 20 U/L (5-34); Albumin 3.8 g/dL (3.4-4.8); Alkaline Phosphatase 98 U/L (40-150); Anion Gap 14 mmol/L (10-20); BUN (Urea Nitrogen) 21 mg/dL (9.8-20.1); Bilirubin, Total 0.3 mg/dL (0.2-1.2); Calc. Creatinine Clearance 0 mL/min (70-130); Calcium 10.2 mg/dL (7.8-10.44); Carbon Dioxide 22 mmol/L (23-31); Chloride 109 mmol/L (98-107); Estimated GFR-MDRD 41; Globulin 2.9 g/dL (2.4-3.5); Glucose 85 mg/dL (83-110); Potassium 4.2 mmol/L (3.5-5.1); Protein, Total 6.7 g/dL (6.0-8.3); Sodium 141 mmol/L (136-145)
[2018-01-19 10:23] LABS: Bacteria/HPF None Seen HPF (None Seen); Hyaline Casts/LPF 0-3 HYALINE CAST LPF (0-3 Hyaline); Pathc Cast-AUWi Flag 0.58 (0-2.49); RBC/HPF 0-3 HPF (0-3); Squamous Epithelial 0-3 HPF (0-3); WBC/HPF 0-3 HPF (0-3)
--- NOTE | 2018-01-22 14:01 | EKG ---
Test Reason : Blood Pressure : / mmHG Vent. Rate : 063 BPM Atrial Rate : 063 BPM P-R Int : 128 ms QRS Dur : 086 ms QT Int : 434 ms P-R-T Axes : 073 025 029 degrees QTc Int : 444 ms Normal sinus rhythm Septal infarct , age undetermined Abnormal ECG Confirmed by BRIGETTE TRIPP, BRITTANI ([id number]), movie editor YULISSA RAMÍREZ ([id number]) on 01/22/2018 2:00:37 PM Referred By: Confirmed By:BRITTANI MACHUCA MD
== END 2018-01-19 11:47 | disposition home or self-care (01) ==
LOC: ERS 08:44
DX: S00.83XA Contusion of other part of head, initial encounter (principal); I25.10 Atherosclerotic heart disease of native coronary artery without angina pectoris; D50.9 Iron deficiency anemia, unspecified; E78.2 Mixed hyperlipidemia; F41.9 Anxiety disorder, unspecified; Z79.899 Other long term (current) drug therapy; W19.XXXA Unspecified fall, initial encounter
CPT/HCPCS: 51701; 70450; 71045; 80053; 81003; 81015; 84484; 85025; 87086; 93005; A4353